=== PATIENT | male | born 1935 | race Caucasian/White ===

== ENCOUNTER 2018-12-16 14:10 | Outpatient (CLI) | payer MEDICARE ==
--- NOTE | 2018-12-16 16:21 | MRI ---
MRI ABDOMEN WITHOUT CONTRAST: 12/16/18 HISTORY: Renal cyst. FINDINGS: Exam is limited due to absence of IV contrast. The patient refused contrast. There is a 2.8 cm cystic mass in the right lobe of the liver which contains internal focal area of lo w T2 and intermediate to mildly high T1 signal. Possibility of this representing blood products canno t be excluded. Multiple gallstones are present. The spleen, pancreas, and adrenal glands appear normal. There are cysts in the left kidney. The largest measuring 1.7 cm. The tiny 5 mm cyst is seen in the r ight kidney. No free fluid or lymphadenopathy seen. There is no evidence of aneurysmal dilatation of the abdominal aorta. The bone marrow signal is normal. IMPRESSION: 1. Gallstones. 2. Complex cyst in the Liver. Possibility of hemorrhage cannot be excluded. A mural nodule caroline ot be excluded in the absence of IV contrast. 3. Renal cysts. 4. Recommend ultrasound of the abdomen. POS: OFF
== END 2018-12-16 14:11 | disposition home or self-care (01) ==
LOC: BICMRI 14:10
PROVIDERS: ATTEND Urology
DX: N28.1 Cyst of kidney, acquired (principal); K80.80 Other cholelithiasis without obstruction; K76.89 Other specified diseases of liver
CPT/HCPCS: 74181

== ENCOUNTER 2019-03-16 07:57 | Outpatient (CLI) | payer MEDICARE ==
[2019-03-16 12:04] LABS: Bacteria/HPF None Seen HPF (None Seen); Bilirubin Negative (Negative); Blood, Urine Negative (Negative); Clarity Clear (Clear); Glucose, Urine (Dipstick) Normal (Negative); Leukocyte Negative Leu/uL (Negative); Nitrite Negative (Negative); Protein, Urine (Dipstick) 200 mg/dL (Neg-Trace); RBC/HPF 0-3 HPF (0-3); Squamous Epithelial None Seen HPF (0-3); Urobilinogen Normal mg/dL (Less than 2); WBC/HPF 0-3 HPF (0-3)
[2019-03-16 12:11] LABS: Hemoglobin 13.7 g/dL (14.0-18.0); Mean Corpuscular HGB CONC 33.4 g/dL (32.0-36.0); Mean Platelet Volume 9.6 fL (7.4-10.4); Platelet Count 175 thou/uL (130-400); RBC Distribution Width 11.7 % (11.5-14.5); Red Blood Cell (RBC) Count 4.57 mill/uL (4.70-6.10); White Blood Cell (WBC) Count 7.8 thou/uL (4.8-10.8)
[2019-03-16 12:20] LABS: Prothrombin Time 12.8 SEC (12.0-14.7)
[2019-03-16 12:21] LABS: PTT 37.7 SEC (22.9-36.1)
[2019-03-16 19:47] LABS: Anion Gap 10 mmol/L (10-20); BUN (Urea Nitrogen) 33 mg/dL (8.4-25.7); Calc. Creatinine Clearance 0 mL/min (70-130); Calcium 9.4 mg/dL (7.8-10.44); Carbon Dioxide 25 mmol/L (23-31); Chloride 112 mmol/L (98-107); Estimated GFR-MDRD 29; Glucose 89 mg/dL (83-110); Potassium 4.4 mmol/L (3.5-5.1); Sodium 143 mmol/L (136-145)
--- NOTE | 2019-03-17 11:08 | EKG ---
Test Reason : Blood Pressure : / mmHG Vent. Rate : 051 BPM Atrial Rate : 051 BPM P-R Int : 194 ms QRS Dur : 096 ms QT Int : 430 ms P-R-T Axes : 029 017 -09 degrees QTc Int : 396 ms Sinus bradycardia Moderate voltage criteria for LVH, may be normal variant T wave abnormality, consider inferior ischemia Abnormal ECG No previous ECGs available Confirmed by DR. Debbie COTTER ([id number]) on 03/17/2019 11:07:38 AM Referred By: JAYDE Confirmed By:DR. Debbie COTTER
== END 2019-03-16 07:58 | disposition home or self-care (01) ==
LOC: LABBT 07:57
PROVIDERS: ATTEND Urology
DX: Z01.818 Encounter for other preprocedural examination (principal); N40.0 Benign prostatic hyperplasia without lower urinary tract symptoms; N28.1 Cyst of kidney, acquired; K76.89 Other specified diseases of liver
CPT/HCPCS: 80048; 81001; 85027; 85610; 85730; 87086; 93005; 93010

== ENCOUNTER 2019-03-17 08:59 | Outpatient (CLI) | payer MEDICARE ==
--- NOTE | 2019-03-17 09:55 | ULT ---
Right upper quadrant ultrasound: 03/17/2019 HISTORY: Hepatic mass lesion seen on recent abdominal MRI TECHNIQUE: Multiplanar grayscale sonographic imaging of the right upper quadrant obtained. FINDINGS: Imaged pancreas is grossly unremarkable, partially obscured by bowel gas. Portions of the l eft lobe of the liver obscured by bowel gas as well. Within the right lobe of the liver there is a 3.2 x 2.1 cm lesion corresponding to the abnormality se en on prior MRI. As on the previous MRI, this lesion is complex, consisting of a cystic component as well as an internal nodular component. Small shadowing stones are noted within the gallbladder lumen. No gallbladder wall thickening or erna cholecystic fluid. The right kidney measures approximately 10 cm in craniocaudal dimension and demonstrates no stone, hydronephrosis, or mass. IMPRESSION: Nonspecific complex cystic lesion within the right lobe of the liver. Perhaps this repres ents a complex cyst which contains hemorrhagic and/or proteinaceous debris. As the patient refused contrast media on prior MRI, follow-up recommendation would be a ultrasound in 6 months to document s tability. At the time of follow-up ultrasound, recommend imaging the liver lesion with the patient in the decubitus, prone, and supine positions to evaluate for potential mobility of the internal isoe choic component.
== END 2019-03-17 09:00 | disposition home or self-care (01) ==
LOC: BICULT 08:59
PROVIDERS: ATTEND Internal Medicine Gastroenterology
DX: R16.0 Hepatomegaly, not elsewhere classified (principal); K76.89 Other specified diseases of liver
CPT/HCPCS: 76705

== ENCOUNTER 2019-03-20 05:49 | Day surgery (SDC) | payer MEDICARE ==
[2019-03-16 10:24] VITALS: BMI 29.9
[2019-03-20] MEDS ORDERED: Levofloxacin 500 mg/D5W 100 ml Premix Bag ONE (07:10)
[2019-03-20] MEDS ORDERED: Midazolam HCl 2 mg/2 ml Vial ONE (07:33)
[2019-03-20] MEDS ORDERED: Fentanyl 100 MCG/2 ML VIAL ONE (07:33)
[2019-03-20] MEDS ORDERED: Ketamine 50 MG/ML (10ML VIAL) ONE ×2 (07:42→08:36)
[2019-03-20] MEDS ORDERED: B & O ONE (08:12)
[2019-03-20] MEDS ORDERED: Phenazopyridine HCl 97.5 MG TABLET ONE (08:43)
--- NOTE | 2019-03-20 09:40 | OP ---
DATE OF PROCEDURE: 03/20/2019 SERVICE: Urology. PREOPERATIVE DIAGNOSIS: Benign prostatic hypertrophy with urinary obstruction. POSTOPERATIVE DIAGNOSIS: Benign prostatic hypertrophy with urinary obstruction. PROCEDURE PERFORMED: UroLift procedure with 7 implants. INDICATIONS FOR PROCEDURE: Mr. Caro is an 83-year-old white male with BPH and urinary symptoms with obstructive symptoms predominating. He is currently on Flomax and wishes to undergo a minimally invasive treatment. We had discussed UroLift with all risks and benefits and he has agreed to proceed forward. DESCRIPTION OF PROCEDURE: After identification of armband and verification of consent, the patient was brought back to the operating room, where he underwent total intravenous anesthesia and was placed in dorsal lithotomy position and prepped and draped in the usual sterile fashion. After appropriate time-out, a lubricated 21-Moldovan rigid cystoscope was introduced per urethra into the bladder. There was a small bulbar urethra, which was navigated past with the cystoscope. The prostate was hypertrophic that previously had been reported on the office cystoscopy. The visual obturator was switched out for the UroLift implanting device, and the initial implant was placed at the patient's left bladder neck far enough away from the bladder neck to not be within the bladder. The UroLift device was positioned in the correct location and then 20 degrees of lateral compression as well as dropping the hand down to get an anterior lift was performed. Once in the correct location, the blue safety was released and the needle was deployed by squeezing the blue trigger. The tension was set with a perez trigger and deployment of the Nitinol prostatic capsular tab. The UroLift device was then advanced until the white line was in the keyhole and the urethral end piece deployed by releasing the trigger. This resulted in nice compression of the proximal aspect of the patient's left prostate. This was then repeated on the right side, and again two additional implants were placed on the left and right closer to the verumontanum. There was still a fairly significant bulge in the middle aspect of the prostate. Two additional implants were placed on the patient's left mid prostate with a moderate amount of bulge remaining. One additional implant was then placed in the right mid prostate with excellent compression of the lateral lobe on the patient's right. Upon completion, there was a fairly good anterior channel present. There was still a little bit of a bulge on the left, but it was not excessively significant. I did feel that this should allow for the patient to void adequately. The bleeding was noted to be mild to moderate. The bladder was left full and the cystoscope was then removed. An 18-Moldovan Monsalve catheter was placed into the patient's bladder with 10 mL of sterile water placed into the balloon. The patient had a B and O suppository placed, was then awakened, taken to Day Stay for recovery in stable condition. COMPLICATIONS: None. ESTIMATED BLOOD LOSS: Minimal. RETAINED TUBES AND DRAINS: 18-Moldovan Monsalve catheter. SPECIMENS: None. IMPLANTS USED: 7. DISPOSITION: The patient will be discharged home after an adequate void trial. I will then see him in the office for followup. Job ID: [id number]
[2019-03-20] MEDS ORDERED: PROPOFOL 200 MG/20 ML VIAL ONE (13:53)
== END 2019-03-20 11:20 | disposition home or self-care (01) ==
LOC: SDC 05:49
PROVIDERS: ATTEND Urology
PROC: 0T7D8DZ Dilation of Urethra with Intraluminal Device, Via Natural or Artificial Opening Endoscopic (ICD-10-PCS; principal; 2019-03-20)
DX: N40.1 Benign prostatic hyperplasia with lower urinary tract symptoms (principal); N13.8 Other obstructive and reflux uropathy; I10 Essential (primary) hypertension; E78.5 Hyperlipidemia, unspecified; M19.90 Unspecified osteoarthritis, unspecified site; Z87.891 Personal history of nicotine dependence; Z79.82 Long term (current) use of aspirin; Z79.899 Other long term (current) drug therapy
CPT/HCPCS: C1889; C9740; J1956; J2250; J2704; J3010

== ENCOUNTER 2019-10-01 09:17 | Outpatient (CLI) | payer MEDICARE ==
--- NOTE | 2019-10-01 10:36 | MRI ---
EXAM: MRI of the brain without contrast HISTORY: Senile degeneration of the brain COMPARISON: None TECHNIQUE: Multiplanar multisequence MR images were obtained of the brain without IV contrast. FINDINGS: Scattered foci of high T2/FLAIR signal in the subcortical and periventricular white matter are likely secondary to small vessel ischemic disease. No restricted diffusion. No hydronephrosis. No extra-axial fluid collection or intracranial hemorrhage. The expected flow voids are present. Corpus callosum, pituitary, and craniocervical junction are within normal limits. The calvarium and overlying soft tissues are unremarkable. The paranasal sinuses and mastoid air cells are well aerated. IMPRESSION: Small vessel ischemic disease without evidence of acute intracranial abnormality.
== END 2019-10-01 09:18 | disposition home or self-care (01) ==
LOC: BICMRI 09:17
PROVIDERS: ATTEND Psychiatry & Neurology Neurology
DX: G31.1 Senile degeneration of brain, not elsewhere classified (principal); I67.82 Cerebral ischemia
CPT/HCPCS: 70551

== ENCOUNTER 2021-11-08 11:45 | Outpatient (CLI) | payer MEDICARE, OTHER | END 2021-11-08 11:46 | disposition home or self-care (01) | LOC: BICRAD 11:45 | PROVIDERS: ATTEND Internal Medicine Nephrology | DX: N18.5 Chronic kidney disease, stage 5 (principal) | CPT/HCPCS: 36415; 71045; 80048; 85025; 86704; 86706; 86803; 87340 ==

== ENCOUNTER 2021-11-24 15:21 | Outpatient (CLI) | payer OTHER ==
[2021-11-24 17:11] LABS: #Basophils 0.1 10x3/uL (0.0-0.2); #Eosinphils 0.3 10x3/uL (0.0-0.5); #Monocytes 0.9 10x3/uL (0.0-1.1); #Neutrophils 4.4 10x3/uL (1.5-8.4); %Basophils 0.7 % (0.0-2.0); %Eosinophils 4.4 % (0.0-6.0); %Lymphocytes 23.4 % (18.0-47.0); %Monocytes 11.8 % (0.0-10.0); %Neutrophils 59.4 % (40.0-75.0); Hemoglobin 9.7 g/dL (13.5-17.5); Mean Corpuscular HGB CONC 31.7 g/dL (32.0-36.0); Mean Corpuscular Hemoglobin 29.7 pg (27.0-33.0); Mean Corpuscular Volume 93.6 fl (81.2-95.1); Mean Platelet Volume 12.2 fl (7.4-10.4); Platelet Count 195 10x3/uL (150-450); RBC Distribution Width 13.1 % (11.5-14.5); Red Blood Cell (RBC) Count 3.27 10x6/uL (4.32-5.72); White Blood Cell (WBC) Count 7.4 10x3/uL (3.5-10.5)
[2021-11-24 17:40] LABS: Anion Gap 15 mmol/L (10-20); BUN (Urea Nitrogen) 64 mg/dL (8.4-25.7); Calc. Creatinine Clearance 0 mL/min (70-130); Calcium 9.2 mg/dL (7.8-10.44); Carbon Dioxide 16 mmol/L (23-31); Chloride 116 mmol/L (98-107); Estimated GFR 12; Glucose 112 mg/dL (83-110); Potassium 4.8 mmol/L (3.5-5.1); Sodium 142 mmol/L (136-145)
== END 2021-11-24 15:22 | disposition home or self-care (01) ==
LOC: LABBT 15:21
PROVIDERS: ATTEND Specialist
DX: Z01.818 Encounter for other preprocedural examination (principal); N18.4 Chronic kidney disease, stage 4 (severe); Z20.822 Contact with and (suspected) exposure to COVID-19
CPT/HCPCS: 80048; 85025; 87811; 93005; 93010

== ENCOUNTER 2021-11-29 09:30 | Day surgery (SDC) | payer OTHER ==
[2021-11-28 09:14] VITALS: BMI 27.5
[2021-11-29 12:04] LABS: #Eosinphils 0.3 thou/uL (0.0-0.7); #Lymphocytes 1.5 thou/uL (1.20-3.40); #Monocytes 0.8 thou/uL (0.11-0.59); %Basophils 0.2 % (0.0-1.0); %Eosinophils 4.1 % (0.0-10.0); %Lymphocytes 20.1 % (21.0-51.0); %Monocytes 9.9 % (0.0-10.0); %Neutrophils 65.7 % (42.0-75.0); Mean Corpuscular HGB CONC 32.8 g/dL (32.0-36.0); Mean Corpuscular Hemoglobin 31.4 pg (27.0-31.0); Mean Corpuscular Volume 95.7 fL (78.0-98.0); Mean Platelet Volume 9.4 fL (7.4-10.4); Platelet Count 168 thou/uL (130-400); RBC Distribution Width 13.7 % (11.5-14.5); Red Blood Cell (RBC) Count 3.51 mill/uL (4.70-6.10); White Blood Cell (WBC) Count 7.6 thou/uL (4.8-10.8)
[2021-11-29 12:33] LABS: Anion Gap 14 mmol/L (10-20); BUN (Urea Nitrogen) 71 mg/dL (8.4-25.7); Calc. Creatinine Clearance 14 mL/min (70-130); Calcium 9.1 mg/dL (7.8-10.44); Carbon Dioxide 14 mmol/L (23-31); Estimated GFR 12; Glucose 95 mg/dL (83-110); Potassium 5.3 mmol/L (3.5-5.1); Sodium 139 mmol/L (136-145)
[2021-11-29] MEDS ORDERED: Acetaminophen 500 MG TAB ONE (12:44)
[2021-11-29 12:47] LABS: HBSAB Concentration Less than 8.00 mIU/mL; HBSAg Index 0.32 S/CO (0-0.99); Hep B Core Total Ab Non-Reactive (NonReactive); Hep B Core Total Index 0.08 S/CO (0-0.79); Hep B Surf AB Non-Reactive (NonReactive); Hep B Surf Ag Non-Reactive S/CO (NonReactive); Hep C IgG Ab Non-Reactive (NonReactive)
[2021-11-29 13:02] LABS: Chloride 116 mmol/L (98-107)
[2021-11-29] MEDS ORDERED: SUGAMMADEX SODIUM 200 MG/2 ML VIAL ONE (13:20)
[2021-11-29] MEDS ORDERED: fentaNYL Citrate/PF 100 MCG/2 ML SYRINGE ONE (13:20)
[2021-11-29] MEDS ORDERED: Bupivacaine HCl 0.5%/Epinephrine 1:200,000/PF 30 ml Vial ONE (13:27)
[2021-11-29] MEDS ORDERED: Heparin 5,000 UNITS/ML VIAL ONE (13:27)
[2021-11-29] MEDS ORDERED: Protamine Sulfate 50 MG/5 ML VIAL ONE (13:27)
[2021-11-29] MEDS ORDERED: Heparin 10,000 UNITS/ 10 ML VIAL ONE (13:27)
[2021-11-29] MEDS ORDERED: Lidocaine 2% PF 5 ML VIAL ONE (13:33)
[2021-11-29] MEDS ORDERED: Sodium Chloride 0.9% 100 ML ONE (13:40)
[2021-11-29] MEDS ORDERED: CEFAZOLIN 2 GM VIAL ONE (13:40)
[2021-11-29] MEDS ORDERED: Glycopyrrolate 0.2 MG/ML 5 ML SYRINGE ONE (13:55)
[2021-11-29] MEDS ORDERED: Lidocaine 1% MPF 2 ML VIAL ONE (13:55)
[2021-11-29] MEDS ORDERED: PROPOFOL 200 MG/20 ML VIAL ONE (13:55)
[2021-11-29] MEDS ORDERED: Rocuronium Bromide 10 MG/ML (10ML VIAL) ONE (13:55)
== END 2021-11-29 17:15 | disposition home or self-care (01) ==
LOC: SDC 09:30
PROVIDERS: ATTEND Specialist
PROC: 0WHG43Z Insertion of Infusion Device into Peritoneal Cavity, Percutaneous Endoscopic Approach (ICD-10-PCS; principal; 2021-11-29)
PROC: 0DQU4ZZ Repair Omentum, Percutaneous Endoscopic Approach (ICD-10-PCS; 2021-11-29)
PROC: 031C0ZF Bypass Left Radial Artery to Lower Arm Vein, Open Approach (ICD-10-PCS; 2021-11-29)
DX: I12.0 Hypertensive chronic kidney disease with stage 5 chronic kidney disease or end stage renal disease (principal); N18.6 End stage renal disease; I70.1 Atherosclerosis of renal artery; N40.0 Benign prostatic hyperplasia without lower urinary tract symptoms; K21.9 Gastro-esophageal reflux disease without esophagitis; E78.5 Hyperlipidemia, unspecified; I25.10 Atherosclerotic heart disease of native coronary artery without angina pectoris; Z87.891 Personal history of nicotine dependence; Z88.8 Allergy status to other drugs, medicaments and biological substances; Z79.82 Long term (current) use of aspirin; Z79.899 Other long term (current) drug therapy; Z95.820 Peripheral vascular angioplasty status with implants and grafts
CPT/HCPCS: 36415; 80048; 85025; 86704; 86706; 86803; 87340; 93970; C1776; J0690; J1644; J2001; J2704; J2720; J3490

== ENCOUNTER 2022-01-11 10:21 | Outpatient (CLI) | payer OTHER | END 2022-01-11 10:22 | disposition home or self-care (01) | LOC: MRI 10:21 | PROVIDERS: ATTEND Registered Nurse | DX: G31.1 Senile degeneration of brain, not elsewhere classified (principal) | CPT/HCPCS: 70551 ==

== ENCOUNTER 2022-03-20 10:24 | Inpatient (IN) | payer MEDICARE, OTHER ==
[2022-03-20 11:08] LABS: #Eosinphils 0.1 thou/uL (0.0-0.7); #Lymphocytes 1.5 thou/uL (1.20-3.40); #Monocytes 1.1 thou/uL (0.11-0.59); #Neutrophils 8.8 thou/uL (1.40-6.50); %Eosinophils 1.1 % (0.0-10.0); %Lymphocytes 12.6 % (21.0-51.0); %Monocytes 9.9 % (0.0-10.0); %Neutrophils 76.4 % (42.0-75.0); Hemoglobin 11.7 g/dL (14.0-18.0); Mean Corpuscular HGB CONC 32.3 g/dL (32.0-36.0); Mean Corpuscular Volume 89.7 fl (78.0-98.0); Mean Platelet Volume 8.7 fL (7.4-10.4); Platelet Count 373 10x3/uL (130-400); Red Blood Cell (RBC) Count 4.05 mill/uL (4.70-6.10); White Blood Cell (WBC) Count 11.5 10x3/uL (4.8-10.8)
[2022-03-20 11:33] LABS: ALT (SGPT) 55 U/L (8-55); AST (SGOT) 31 U/L (5-34); Albumin 2.7 g/dL (3.4-4.8); Alkaline Phosphatase 250 U/L (40-110); Anion Gap 24 mmol/L (10-20); Bilirubin, Total 0.7 mg/dL (0.2-1.2); Calc. Creatinine Clearance 0 mL/min (70-130); Calcium 9.7 mg/dL (7.8-10.44); Carbon Dioxide 23 mmol/L (23-31); Chloride 96 mmol/L (98-107); Estimated GFR 4; Globulin 4.4 g/dL (2.4-3.5); Glucose 129 mg/dL (83-110); Potassium 3.6 mmol/L (3.5-5.1); Protein, Total 7.1 g/dL (5.8-8.1); Sodium 139 mmol/L (136-145)
[2022-03-20 11:44] LABS: BUN (Urea Nitrogen) 133 mg/dL (8.4-25.7)
[2022-03-20 14:11] LABS: CKMB 1.9 ng/mL (0-6.6)
[2022-03-20 14:40] LABS: Actual Bicarbonate (HCO3v) 22 mEq/L (22-28); Base Excess -2.4 mEq/L (-2.0 to +3.0); Calcium, Ionized (venous) 1.07 mmol/L (1.16-1.32); Chloride (VBG) 97 mmol/L (98-106); Hemoglobin (Hb) 11.1 g/dL (12.6-17.4); Potassium (VBG) 3.51 mmol/L (3.70-5.30); Sodium 134.7 mmol/L (133-146)
[2022-03-20] MEDS ORDERED: Ondansetron PF 4 MG/2 ML Vial IVP PRN (15:32)
[2022-03-20] MEDS ORDERED: Ondansetron ODT 4 MG TAB PO PRN (15:32)
[2022-03-20] MEDS ORDERED: Albumin 25% 25 GM/100 ML BOT IVPB SCH (17:45)
[2022-03-20 18:51] LABS: HBSAg Index 0.29 S/CO (0-0.99); Hep B Core Total Ab Non-Reactive (NonReactive); Hep B Core Total Index 0.14 S/CO (0-0.79); Hep B Surf Ag Non-Reactive S/CO (NonReactive); Hep C IgG Ab Non-Reactive (NonReactive); Hep C Index 0.13 S/CO (0-0.79)
[2022-03-20 20:20] LABS: HBSAB Concentration 9.99 mIU/mL; Hep B Surf AB Indeterminate (NonReactive)
[2022-03-20 20:37] VITALS: BMI 24.6
[2022-03-20] MEDS: Megestrol Acetate 40 MG TAB PO SCH (21:09)
[2022-03-20] MEDS: Donepezil HCl 5 MG TAB PO SCH (21:10)
[2022-03-20] MEDS: Acetaminophen 500 MG TAB PO PRN (21:11)
[2022-03-20] MEDS: Famotidine 20 MG TAB PO SCH (21:11)
[2022-03-21 05:01] LABS: #Eosinphils 0.2 thou/uL (0.0-0.7); #Lymphocytes 1.5 thou/uL (1.20-3.40); #Monocytes 1.3 thou/uL (0.11-0.59); #Neutrophils 6.6 thou/uL (1.40-6.50); %Basophils 0.5 % (0.0-1.0); %Lymphocytes 15.2 % (21.0-51.0); %Monocytes 13.9 % (0.0-10.0); %Neutrophils 68.3 % (42.0-75.0); Hemoglobin 9.7 g/dL (14.0-18.0); Mean Corpuscular HGB CONC 32.3 g/dL (32.0-36.0); Mean Corpuscular Hemoglobin 29.4 pg (27.0-31.0); Mean Corpuscular Volume 90.9 fl (78.0-98.0); Mean Platelet Volume 8.7 fL (7.4-10.4); Platelet Count 304 10x3/uL (130-400); RBC Distribution Width 13.9 % (11.5-14.5); White Blood Cell (WBC) Count 9.6 10x3/uL (4.8-10.8)
[2022-03-21 05:24] LABS: ALT (SGPT) 39 U/L (8-55); AST (SGOT) 24 U/L (5-34); Albumin 2.8 g/dL (3.4-4.8); Alkaline Phosphatase 186 U/L (40-110); Anion Gap 19 mmol/L (10-20); BUN (Urea Nitrogen) 94 mg/dL (8.4-25.7); Bilirubin, Total 0.8 mg/dL (0.2-1.2); Calc. Creatinine Clearance 6 mL/min (70-130); Calcium 8.7 mg/dL (7.8-10.44); Carbon Dioxide 23 mmol/L (23-31); Chloride 99 mmol/L (98-107); Estimated GFR 5; Globulin 3.3 g/dL (2.4-3.5); Glucose 87 mg/dL (83-110); Potassium 3.2 mmol/L (3.5-5.1); Protein, Total 6.1 g/dL (5.8-8.1); Sodium 138 mmol/L (136-145)
[2022-03-21] MEDS ORDERED: Epoetin (ESRD) 10,000 UNITS/ML VIAL SC SCH (10:00)
[2022-03-21] MEDS: Fluticasone Propionate Nasal Spray 16 gm Bottle NASAL SCH (11:10)
[2022-03-21] MEDS: Calcitriol 0.25 MCG CAP PO SCH (11:17)
[2022-03-21] MEDS: Megestrol Acetate 40 MG TAB PO SCH ×2 (11:17→16:15)
[2022-03-21] MEDS: Tamsulosin HCl 0.4 MG CAP PO SCH (11:17)
[2022-03-21] MEDS: Acetaminophen 500 MG TAB PO PRN ×2 (13:40→20:42)
[2022-03-21] MEDS ORDERED: Nitroglycerin 0.4 MG TAB (25 Tab Bottle) SL PRN (16:45)
[2022-03-21] MEDS: Ipratropium Bromide 0.06% Nasal Inhaler 15ml EA NARE SCH (18:01)
[2022-03-21] MEDS: Sevelamer Carbonate 800 MG TAB PO SCH (18:01)
[2022-03-21] MEDS: Famotidine 20 MG TAB PO SCH (20:42)
[2022-03-21] MEDS: Atorvastatin Calcium 40 MG TAB PO SCH (20:42)
[2022-03-21] MEDS: Donepezil HCl 5 MG TAB PO SCH (20:42)
[2022-03-22 04:56] LABS: #Eosinphils 0.1 thou/uL (0.0-0.7); #Lymphocytes 1.8 thou/uL (1.20-3.40); #Monocytes 1.1 thou/uL (0.11-0.59); #Neutrophils 6.5 thou/uL (1.40-6.50); %Basophils 0.2 % (0.0-1.0); %Eosinophils 1.3 % (0.0-10.0); %Lymphocytes 18.6 % (21.0-51.0); %Monocytes 11.8 % (0.0-10.0); Hemoglobin 9.7 g/dL (14.0-18.0); Mean Corpuscular HGB CONC 33.1 g/dL (32.0-36.0); Mean Corpuscular Hemoglobin 29.5 pg (27.0-31.0); Mean Corpuscular Volume 89.1 fl (78.0-98.0); Mean Platelet Volume 8.7 fL (7.4-10.4); Platelet Count 301 10x3/uL (130-400); RBC Distribution Width 13.7 % (11.5-14.5); White Blood Cell (WBC) Count 9.6 10x3/uL (4.8-10.8)
[2022-03-22 05:15] LABS: Anion Gap 19 mmol/L (10-20); BUN (Urea Nitrogen) 96 mg/dL (8.4-25.7); Calc. Creatinine Clearance 5 mL/min (70-130); Calcium 9.1 mg/dL (7.8-10.44); Carbon Dioxide 25 mmol/L (23-31); Chloride 96 mmol/L (98-107); Estimated GFR 4; Glucose 104 mg/dL (83-110); Sodium 137 mmol/L (136-145)
[2022-03-22] MEDS: Sevelamer Carbonate 800 MG TAB PO SCH ×3 (07:51→16:02)
[2022-03-22] MEDS ORDERED: Potassium Chloride 20 MEQ TAB PO SCH (08:30)
[2022-03-22] MEDS: Ferrous Sulfate 325 MG TAB PO SCH (09:55)
[2022-03-22] MEDS: Aspirin 81 mg Enteric Coated Tablet PO SCH (09:55)
[2022-03-22] MEDS: Tamsulosin HCl 0.4 MG CAP PO SCH ×2 (09:55→09:59)
[2022-03-22] MEDS: Megestrol Acetate 40 MG TAB PO SCH ×2 (09:55→16:02)
[2022-03-22] MEDS: Amlodipine 5 MG TAB PO SCH (09:55)
[2022-03-22] MEDS: Calcitriol 0.25 MCG CAP PO SCH (09:56)
[2022-03-22] MEDS: Fluticasone Propionate Nasal Spray 16 gm Bottle NASAL SCH (09:56)
[2022-03-22] MEDS: Ascorbic Acid 500 mg Chewable Tablet PO SCH (09:56)
[2022-03-22] MEDS: Ipratropium Bromide 0.06% Nasal Inhaler 15ml EA NARE SCH (16:01)
[2022-03-22] MEDS ORDERED: traZODone HCl 50 MG TAB PO SCH (21:00)
[2022-03-22] MEDS: Donepezil HCl 5 MG TAB PO SCH (21:50)
[2022-03-22] MEDS: Atorvastatin Calcium 40 MG TAB PO SCH (21:50)
[2022-03-23 04:10] LABS: #Basophils 0.1 thou/uL (0.0-0.2); #Eosinphils 0.2 thou/uL (0.0-0.7); #Lymphocytes 1.5 thou/uL (1.20-3.40); #Monocytes 1.3 thou/uL (0.11-0.59); #Neutrophils 8.8 thou/uL (1.40-6.50); %Basophils 0.6 % (0.0-1.0); %Eosinophils 1.9 % (0.0-10.0); %Lymphocytes 12.7 % (21.0-51.0); %Neutrophils 73.8 % (42.0-75.0); Hemoglobin 10.3 g/dL (14.0-18.0); Mean Corpuscular HGB CONC 32.7 g/dL (32.0-36.0); Mean Corpuscular Hemoglobin 29.2 pg (27.0-31.0); Mean Corpuscular Volume 89.4 fl (78.0-98.0); Mean Platelet Volume 8.8 fL (7.4-10.4); Platelet Count 305 10x3/uL (130-400); RBC Distribution Width 13.9 % (11.5-14.5); Red Blood Cell (RBC) Count 3.53 mill/uL (4.70-6.10); White Blood Cell (WBC) Count 11.9 10x3/uL (4.8-10.8)
[2022-03-23 04:44] LABS: Anion Gap 20 mmol/L (10-20); BUN (Urea Nitrogen) 98 mg/dL (8.4-25.7); Calc. Creatinine Clearance 5 mL/min (70-130); Calcium 9.3 mg/dL (7.8-10.44); Carbon Dioxide 22 mmol/L (23-31); Chloride 98 mmol/L (98-107); Estimated GFR 4; Glucose 135 mg/dL (83-110); Potassium 3.1 mmol/L (3.5-5.1); Sodium 137 mmol/L (136-145)
[2022-03-23] MEDS: Megestrol Acetate 40 MG TAB PO SCH (09:01)
[2022-03-23] MEDS: Sevelamer Carbonate 800 MG TAB PO SCH ×2 (09:01→13:15)
[2022-03-23] MEDS: Calcitriol 0.25 MCG CAP PO SCH (09:01)
[2022-03-23] MEDS: Ferrous Sulfate 325 MG TAB PO SCH (09:01)
[2022-03-23] MEDS: Amlodipine 5 MG TAB PO SCH ×2 (09:01→10:25)
[2022-03-23] MEDS: Aspirin 81 mg Enteric Coated Tablet PO SCH (09:01)
[2022-03-23] MEDS: Tamsulosin HCl 0.4 MG CAP PO SCH ×2 (09:02→09:07)
[2022-03-23] MEDS: Ascorbic Acid 500 mg Chewable Tablet PO SCH (09:02)
[2022-03-23] MEDS: Fluticasone Propionate Nasal Spray 16 gm Bottle NASAL SCH (09:02)
[2022-03-23] MEDS: Ipratropium Bromide 0.06% Nasal Inhaler 15ml EA NARE SCH (09:03)
[2022-03-23] MEDS ORDERED: Famotidine 20 MG TAB PO SCH (09:30)
[2022-03-23] MEDS ORDERED: Potassium Chloride 20 MEQ TAB PO SCH (11:00)
[2022-03-23 13:26] VITALS: BP 110/60; TEMP 97.4
[2022-03-23] MEDS ORDERED: traZODone HCl 50 MG TAB PO SCH (21:00)
== END 2022-03-23 13:28 | disposition home health service (06) | DRG 682 ==
LOC: ERS 10:24 → 2NO 14:20 → ERHOLD 14:37 → 2NO 19:44
PROVIDERS: ADMIT Internal Medicine; ATTEND Internal Medicine
PROC: 3E1M39Z Irrigation of Peritoneal Cavity using Dialysate, Percutaneous Approach (ICD-10-PCS; principal; 2022-03-22)
DX: I12.0 Hypertensive chronic kidney disease with stage 5 chronic kidney disease or end stage renal disease (principal); G92.8 Other toxic encephalopathy; N18.6 End stage renal disease; F05 Delirium due to known physiological condition; E44.1 Mild protein-calorie malnutrition; Z20.822 Contact with and (suspected) exposure to COVID-19; D63.1 Anemia in chronic kidney disease; F03.90 Unspecified dementia, unspecified severity, without behavioral disturbance, psychotic disturbance, mood disturbance, and anxiety; E78.5 Hyperlipidemia, unspecified; J30.2 Other seasonal allergic rhinitis; R62.7 Adult failure to thrive; Z99.2 Dependence on renal dialysis; Z68.25 Body mass index [BMI] 25.0-25.9, adult; Z88.8 Allergy status to other drugs, medicaments and biological substances; Z87.891 Personal history of nicotine dependence; Z79.899 Other long term (current) drug therapy; Z95.5 Presence of coronary angioplasty implant and graft; Z95.828 Presence of other vascular implants and grafts; Z98.890 Other specified postprocedural states; Z98.49 Cataract extraction status, unspecified eye; Z82.49 Family history of ischemic heart disease and other diseases of the circulatory system
CPT/HCPCS: 36415; 70450; 80048; 80053; 82553; 82805; 84484; 85025; 86704; 87040; 93005; Q4081; S0179; U0003; U0005

== ENCOUNTER 2022-03-25 10:37 | Inpatient (IN) | payer MEDICARE ==
[2022-03-25 11:35] LABS: Hemoglobin 10.5 g/dL (14.0-18.0); Mean Corpuscular HGB CONC 33.2 g/dL (32.0-36.0); Mean Corpuscular Hemoglobin 30.2 pg (27.0-31.0); Mean Corpuscular Volume 90.8 fl (78.0-98.0); Mean Platelet Volume 8.6 fL (7.4-10.4); Platelet Count 291 10x3/uL (130-400); RBC Distribution Width 14.3 % (11.5-14.5); Red Blood Cell (RBC) Count 3.49 mill/uL (4.70-6.10); White Blood Cell (WBC) Count 20.5 10x3/uL (4.8-10.8)
[2022-03-25 11:48] LABS: ALT (SGPT) 34 U/L (8-55); AST (SGOT) 29 U/L (5-34); Albumin 2.6 g/dL (3.4-4.8); Alkaline Phosphatase 166 U/L (40-110); Anion Gap 23 mmol/L (10-20); BUN (Urea Nitrogen) 95 mg/dL (8.4-25.7); Bilirubin, Total 0.7 mg/dL (0.2-1.2); Calc. Creatinine Clearance 0 mL/min (70-130); Calcium 9.5 mg/dL (7.8-10.44); Carbon Dioxide 18 mmol/L (23-31); Chloride 100 mmol/L (98-107); Estimated GFR 4; Globulin 3.9 g/dL (2.4-3.5); Glucose 135 mg/dL (83-110); Potassium 4.2 mmol/L (3.5-5.1); Protein, Total 6.5 g/dL (5.8-8.1); Sodium 137 mmol/L (136-145)
[2022-03-25 11:56] LABS: Lymphocytes 8 % (21-51); MDiff Complete? YES; Monocytes 5 % (0-10); Neutrophil 87 % (42-75); Platelet Morphology Comment Appears Adequate; RBC Morphology Normal
[2022-03-25 12:03] LABS: CKMB 1.4 ng/mL (0-6.6)
[2022-03-25] MEDS ORDERED: Acetaminophen 325 MG TAB PO PRN (13:02)
[2022-03-25] MEDS ORDERED: Ondansetron PF 4 MG/2 ML Vial IVP PRN (13:02)
[2022-03-25 13:21] LABS: Bacteria/HPF 2+ HPF (None Seen); Bilirubin Negative (Negative); Blood, Urine Negative (Negative); Clarity Turbid (Clear); Glucose, Urine (Dipstick) Normal (Negative); Ketone, Urine Negative (Negative); Leukocyte 75 Leu/uL (Negative); Nitrite Negative (Negative); Protein, Urine (Dipstick) 100 mg/dL (Neg-Trace); RBC/HPF 0-3 HPF (0-3); Specific Gravity, Urine 1.017 (1.002-1.036); Squamous Epithelial None Seen HPF (0-3); Urobilinogen Normal mg/dL (Less than 2); pH, Urine 5.5 (5.0-9.0)
[2022-03-25] MEDS ORDERED: Heparin 10,000 UNITS/ 10 ML VIAL ONE (13:57)
[2022-03-25] MEDS ORDERED: Piperacillin/Tazobactam 3.375 GM in Sodium Chloride 0.9% 100 ML IVPB SCH ×2 (14:15→18:00)
[2022-03-25] MEDS ORDERED: Piperacillin/Tazobactam 3.375 GM VIAL ONE ×2 (16:34→20:21)
[2022-03-25] MEDS: Megestrol Acetate 40 MG TAB PO SCH (16:47)
[2022-03-25] MEDS: Sevelamer Carbonate 800 MG TAB PO SCH (16:48)
[2022-03-25 17:50] LABS: RBC Count-Automated (BF) 0 /cu.mm; WBC/Nucleated-Auto (BF) 777 /cu.mm
[2022-03-25 17:59] LABS: BF Color Yellow; Body Fluid Source Peritoneal Fluid; Clarity Hazy (Clear); Tube # EDTA
[2022-03-25 18:03] LABS: BF Segmented Neutrophils 52 %; Cell Count Non Hematic 42 %; Lymphocytes 6 %
[2022-03-25] MEDS: Piperacillin/Tazobactam 3.375 GM in Sodium Chloride 0.9% 100 ML IVPB SCH (20:25)
[2022-03-25] MEDS: Atorvastatin Calcium 40 MG TAB PO SCH (20:30)
[2022-03-25] MEDS ORDERED: traZODone HCl 50 MG TAB ONE (20:31)
[2022-03-25] MEDS: Donepezil HCl 5 MG TAB PO SCH (20:43)
[2022-03-25] MEDS: traZODone HCl 50 MG TAB PO SCH (20:43)
[2022-03-26 05:18] LABS: #Eosinphils 0.2 thou/uL (0.0-0.7); #Lymphocytes 1.4 thou/uL (1.20-3.40); #Monocytes 1.5 thou/uL (0.11-0.59); #Neutrophils 10.1 thou/uL (1.40-6.50); %Basophils 0.1 % (0.0-1.0); %Eosinophils 1.5 % (0.0-10.0); %Lymphocytes 10.3 % (21.0-51.0); %Monocytes 11.5 % (0.0-10.0); %Neutrophils 76.7 % (42.0-75.0); Hemoglobin 8.6 g/dL (14.0-18.0); Mean Corpuscular HGB CONC 33.2 g/dL (32.0-36.0); Mean Corpuscular Hemoglobin 29.7 pg (27.0-31.0); Mean Corpuscular Volume 89.5 fl (78.0-98.0); Mean Platelet Volume 8.6 fL (7.4-10.4); Platelet Count 275 10x3/uL (130-400); RBC Distribution Width 14.5 % (11.5-14.5); White Blood Cell (WBC) Count 13.1 10x3/uL (4.8-10.8)
[2022-03-26 05:33] LABS: Anion Gap 16 mmol/L (10-20); BUN (Urea Nitrogen) 89 mg/dL (8.4-25.7); Calc. Creatinine Clearance 5 mL/min (70-130); Calcium 8.8 mg/dL (7.8-10.44); Carbon Dioxide 24 mmol/L (23-31); Chloride 99 mmol/L (98-107); Estimated GFR 4; Glucose 102 mg/dL (83-110); Potassium 3.3 mmol/L (3.5-5.1); Sodium 136 mmol/L (136-145)
[2022-03-26] MEDS ORDERED: Aspirin Chewable 81 MG TAB ONE (08:22)
[2022-03-26] MEDS ORDERED: Potassium Chloride 20 MEQ TAB ONE (08:22)
[2022-03-26] MEDS ORDERED: Piperacillin/Tazobactam 3.375 GM VIAL ONE (08:23)
[2022-03-26] MEDS: Piperacillin/Tazobactam 3.375 GM in Sodium Chloride 0.9% 100 ML IVPB SCH ×2 (08:31→18:21)
[2022-03-26] MEDS: Sevelamer Carbonate 800 MG TAB PO SCH ×3 (08:31→17:05)
[2022-03-26] MEDS: Megestrol Acetate 40 MG TAB PO SCH ×2 (08:31→17:07)
[2022-03-26] MEDS: Potassium Chloride 20 MEQ TAB PO SCH (08:31)
[2022-03-26] MEDS: Tamsulosin HCl 0.4 MG CAP PO SCH (08:31)
[2022-03-26] MEDS: Aspirin 81 mg Enteric Coated Tablet PO SCH (08:31)
[2022-03-26] MEDS ORDERED: Epoetin (ESRD) 20,000 UNITS/ML SC SCH (09:45)
[2022-03-26] MEDS: Ferrous Sulfate 325 MG TAB PO SCH (10:19)
[2022-03-26] MEDS ORDERED: EPOETIN ALFA-EPBX (ESRD) 10,000 UNIT/ML VIAL SC SCH (12:00)
[2022-03-26] MEDS: Atorvastatin Calcium 40 MG TAB PO SCH (21:11)
[2022-03-26] MEDS: Heparin 5,000 UNITS/ML VIAL SC SCH (21:12)
[2022-03-26] MEDS: traZODone HCl 50 MG TAB PO SCH (21:12)
[2022-03-26] MEDS: Donepezil HCl 5 MG TAB PO SCH (21:12)
[2022-03-27] MEDS: Piperacillin/Tazobactam 3.375 GM in Sodium Chloride 0.9% 100 ML IVPB SCH ×2 (05:22→17:56)
[2022-03-27 08:01] LABS: #Eosinphils 0.1 thou/uL (0.0-0.7); #Lymphocytes 1.8 thou/uL (1.20-3.40); #Monocytes 0.7 thou/uL (0.11-0.59); #Neutrophils 6.8 thou/uL (1.40-6.50); %Basophils 0.2 % (0.0-1.0); %Eosinophils 0.8 % (0.0-10.0); %Lymphocytes 19.2 % (21.0-51.0); %Monocytes 7.2 % (0.0-10.0); %Neutrophils 72.6 % (42.0-75.0); Hemoglobin 10.9 g/dL (14.0-18.0); Mean Corpuscular HGB CONC 31.5 g/dL (32.0-36.0); Mean Platelet Volume 8.6 fL (7.4-10.4); Platelet Count 303 10x3/uL (130-400); RBC Distribution Width 15.1 % (11.5-14.5); Red Blood Cell (RBC) Count 3.77 mill/uL (4.70-6.10); White Blood Cell (WBC) Count 9.3 10x3/uL (4.8-10.8)
[2022-03-27 08:20] LABS: Anion Gap 24 mmol/L (10-20); BUN (Urea Nitrogen) 84 mg/dL (8.4-25.7); Calc. Creatinine Clearance 6 mL/min (70-130); Calcium 9.7 mg/dL (7.8-10.44); Carbon Dioxide 17 mmol/L (23-31); Chloride 99 mmol/L (98-107); Estimated GFR 4; Glucose 136 mg/dL (83-110); Potassium 3.6 mmol/L (3.5-5.1); Sodium 136 mmol/L (136-145)
[2022-03-27] MEDS: Aspirin 81 mg Enteric Coated Tablet PO SCH (09:37)
[2022-03-27] MEDS: Sevelamer Carbonate 800 MG TAB PO SCH ×3 (09:38→17:55)
[2022-03-27] MEDS: Potassium Chloride 20 MEQ TAB PO SCH (09:38)
[2022-03-27] MEDS: Megestrol Acetate 40 MG TAB PO SCH ×2 (09:39→17:57)
[2022-03-27] MEDS: Heparin 5,000 UNITS/ML VIAL SC SCH ×3 (09:44→21:55)
[2022-03-27] MEDS: Tamsulosin HCl 0.4 MG CAP PO SCH (11:33)
[2022-03-27] MEDS ORDERED: Morphine 2 MG/ML VIAL SLOW IVP PRN (12:27)
[2022-03-27 18:01] LABS: INR-International Normal Ratio 1.3; Prothrombin Time 16.3 sec (12.0-14.7)
[2022-03-27 18:02] LABS: PTT 56.6 sec (22.9-36.1)
[2022-03-27] MEDS: Donepezil HCl 5 MG TAB PO SCH (21:54)
[2022-03-27] MEDS: Atorvastatin Calcium 40 MG TAB PO SCH (21:54)
[2022-03-27] MEDS: traZODone HCl 50 MG TAB PO SCH (21:55)
[2022-03-28] MEDS: Piperacillin/Tazobactam 3.375 GM in Sodium Chloride 0.9% 100 ML IVPB SCH ×2 (05:48→18:38)
[2022-03-28] MEDS ORDERED: Iopamidol 0 ML ONE (06:46)
[2022-03-28] MEDS ORDERED: Bupivacaine/Epinephrine 0.25% 30 ML VIAL ONE (06:46)
[2022-03-28] MEDS ORDERED: Fentanyl 250 MCG/5 ML VIAL ONE (09:31)
[2022-03-28] MEDS: Heparin 5,000 UNITS/ML VIAL SC SCH ×3 (09:39→21:35)
[2022-03-28] MEDS: Megestrol Acetate 40 MG TAB PO SCH ×2 (09:39→17:38)
[2022-03-28] MEDS: Sevelamer Carbonate 800 MG TAB PO SCH ×3 (09:39→17:38)
[2022-03-28] MEDS ORDERED: Ondansetron PF 4 MG/2 ML Vial ONE (10:12)
[2022-03-28] MEDS ORDERED: NEOSTIGMINE 3 MG/3 ML SYR 3 MG/3 ML SYRINGE ONE (10:12)
[2022-03-28] MEDS ORDERED: Rocuronium Bromide 10 MG/ML (10ML VIAL) ONE (10:12)
[2022-03-28] MEDS ORDERED: Glycopyrrolate 0.2 MG/ML 5 ML SYRINGE ONE (10:12)
[2022-03-28] MEDS ORDERED: PHENYLEPHRINE-NS 100 MCG/ML 10 ML SYRINGE ONE (10:12)
[2022-03-28] MEDS ORDERED: Calcium Chloride 1 GM/10 ML Abboject SYRINGE ONE (10:12)
[2022-03-28] MEDS ORDERED: Lidocaine 1% PF 5 ML VIAL ONE (10:12)
[2022-03-28] MEDS ORDERED: PROPOFOL 200 MG/20 ML VIAL ONE (10:12)
[2022-03-28] MEDS ORDERED: Dexamethasone 20 MG/5 ML VIAL ONE (10:12)
[2022-03-28] MEDS ORDERED: Phenylephrine 10 MG/ML VIAL ONE ×2 (10:34→11:12)
[2022-03-28] MEDS: Aspirin 81 mg Enteric Coated Tablet PO SCH (10:48)
[2022-03-28] MEDS: Ferrous Sulfate 325 MG TAB PO SCH (10:48)
[2022-03-28] MEDS: Tamsulosin HCl 0.4 MG CAP PO SCH (10:48)
[2022-03-28] MEDS ORDERED: SUGAMMADEX SODIUM 200 MG/2 ML VIAL ONE (13:44)
[2022-03-28] MEDS ORDERED: Ondansetron HCl/PF 4 MG/2 ML Vial IVP PRN (14:02)
[2022-03-28] MEDS ORDERED: Promethazine HCl 25 MG/ML VIAL IM PRN (14:02)
[2022-03-28] MEDS ORDERED: NOREPINEPHRINE 8 MG/250 ML-D5W 250 ML IVPB SCH (14:15)
[2022-03-28] MEDS ORDERED: Acetaminophen/Codeine 30-300mg Tablet PO PRN (14:18)
[2022-03-28] MEDS ORDERED: Albumin 25% 25 GM/100 ML BOT IVPB SCH (14:45)
[2022-03-28] MEDS ORDERED: Fentanyl 100 MCG/2 ML VIAL ONE (14:53)
[2022-03-28] MEDS: Acetaminophen 325 MG TAB PO SCH ×2 (16:21→21:29)
[2022-03-28 17:29] LABS: Anion Gap 23 mmol/L (10-20); BUN (Urea Nitrogen) 71 mg/dL (8.4-25.7); Calc. Creatinine Clearance 6 mL/min (70-130); Calcium 9.3 mg/dL (7.8-10.44); Carbon Dioxide 18 mmol/L (23-31); Chloride 99 mmol/L (98-107); Estimated GFR 4; Glucose 191 mg/dL (83-110); Potassium 4.3 mmol/L (3.5-5.1); Sodium 136 mmol/L (136-145)
[2022-03-28] MEDS: EPOETIN ALFA-EPBX (ESRD) 10,000 UNIT/ML VIAL SC SCH (17:39)
[2022-03-28 18:21] LABS: Hemoglobin 7.2 g/dL (14.0-18.0); Mean Corpuscular HGB CONC 33.1 g/dL (32.0-36.0); Mean Corpuscular Hemoglobin 30.2 pg (27.0-31.0); Mean Corpuscular Volume 91.2 fl (78.0-98.0); Mean Platelet Volume 8.5 fL (7.4-10.4); Platelet Count 250 10x3/uL (130-400); RBC Distribution Width 14.4 % (11.5-14.5); Red Blood Cell (RBC) Count 2.37 mill/uL (4.70-6.10); White Blood Cell (WBC) Count 14.9 10x3/uL (4.8-10.8)
[2022-03-28 18:53] LABS: Band 18 % (5-11); Lymphocytes 2 % (21-51); MDiff Complete? YES; Monocytes 2 % (0-10); Neutrophil 78 % (42-75); Platelet Morphology Comment Appears Adequate; RBC Morphology Normal
[2022-03-28] MEDS: traZODone HCl 50 MG TAB PO SCH (21:29)
[2022-03-28] MEDS: Atorvastatin Calcium 40 MG TAB PO SCH (21:29)
[2022-03-28] MEDS: Donepezil HCl 5 MG TAB PO SCH (21:30)
[2022-03-29] MEDS: Acetaminophen 325 MG TAB PO SCH ×4 (03:05→20:12)
[2022-03-29 04:18] LABS: ALT (SGPT) 29 U/L (8-55); AST (SGOT) 42 U/L (5-34); Albumin 2.4 g/dL (3.4-4.8); Alkaline Phosphatase 103 U/L (40-110); Anion Gap 23 mmol/L (10-20); BUN (Urea Nitrogen) 86 mg/dL (8.4-25.7); Bilirubin, Direct 0.6 mg/dL (0.1-0.3); Calc. Creatinine Clearance 5 mL/min (70-130); Calcium 9.9 mg/dL (7.8-10.44); Carbon Dioxide 20 mmol/L (23-31); Chloride 98 mmol/L (98-107); Estimated GFR 4; Glucose 144 mg/dL (83-110); Potassium 4.7 mmol/L (3.5-5.1); Protein, Total 5.6 g/dL (5.8-8.1); Sodium 136 mmol/L (136-145)
[2022-03-29 04:39] LABS: Band 7 % (5-11); Hemoglobin 7.2 g/dL (14.0-18.0); Lymphocytes 3 % (21-51); MDiff Complete? YES; Mean Corpuscular HGB CONC 32.8 g/dL (32.0-36.0); Mean Corpuscular Hemoglobin 29.6 pg (27.0-31.0); Mean Corpuscular Volume 90.3 fl (78.0-98.0); Mean Platelet Volume 8.5 fL (7.4-10.4); Monocytes 2 % (0-10); Neutrophil 88 % (42-75); Platelet Count 286 10x3/uL (130-400); RBC Distribution Width 14.7 % (11.5-14.5); Red Blood Cell (RBC) Count 2.44 mill/uL (4.70-6.10)
[2022-03-29] MEDS: Piperacillin/Tazobactam 3.375 GM in Sodium Chloride 0.9% 100 ML IVPB SCH ×2 (05:03→17:33)
[2022-03-29] MEDS: Tamsulosin HCl 0.4 MG CAP PO SCH (08:48)
[2022-03-29] MEDS: Aspirin 81 mg Enteric Coated Tablet PO SCH (08:50)
[2022-03-29] MEDS: Heparin 5,000 UNITS/ML VIAL SC SCH ×3 (08:55→20:29)
[2022-03-29] MEDS: Saccharomyces boulardii 250 MG CAP PO SCH (09:14)
[2022-03-29] MEDS: Sevelamer Carbonate 800 MG TAB PO SCH ×3 (09:14→17:19)
[2022-03-29] MEDS: Megestrol Acetate 40 MG TAB PO SCH ×2 (10:37→17:18)
[2022-03-29] MEDS ORDERED: Famotidine/PF 20 mg/2ml Vial SLOW IVP SCH (11:00)
[2022-03-29] MEDS: Atorvastatin Calcium 40 MG TAB PO SCH (20:14)
[2022-03-29] MEDS: traZODone HCl 50 MG TAB PO SCH (20:14)
[2022-03-29] MEDS: Donepezil HCl 5 MG TAB PO SCH (20:14)
[2022-03-29 21:00] LABS: #Lymphocytes 1.1 thou/uL (1.20-3.40); #Monocytes 1.3 thou/uL (0.11-0.59); #Neutrophils 14.8 thou/uL (1.40-6.50); %Basophils 0.1 % (0.0-1.0); %Lymphocytes 6.3 % (21.0-51.0); %Monocytes 7.4 % (0.0-10.0); %Neutrophils 86.2 % (42.0-75.0); Hemoglobin 7.1 g/dL (14.0-18.0); Mean Corpuscular HGB CONC 32.6 g/dL (32.0-36.0); Mean Corpuscular Hemoglobin 28.7 pg (27.0-31.0); Mean Corpuscular Volume 88.2 fl (78.0-98.0); Mean Platelet Volume 7.9 fL (7.4-10.4); Platelet Count 212 10x3/uL (130-400); RBC Distribution Width 14.8 % (11.5-14.5); Red Blood Cell (RBC) Count 2.46 mill/uL (4.70-6.10); White Blood Cell (WBC) Count 17.2 10x3/uL (4.8-10.8)
[2022-03-30] MEDS: Acetaminophen 325 MG TAB PO SCH ×4 (02:08→20:46)
[2022-03-30 04:05] LABS: #Lymphocytes 1.2 thou/uL (1.20-3.40); #Monocytes 1.2 thou/uL (0.11-0.59); #Neutrophils 14.3 thou/uL (1.40-6.50); %Basophils 0.1 % (0.0-1.0); %Eosinophils 0.1 % (0.0-10.0); %Lymphocytes 7.4 % (21.0-51.0); %Monocytes 7.3 % (0.0-10.0); %Neutrophils 85.2 % (42.0-75.0); Mean Corpuscular HGB CONC 33.5 g/dL (32.0-36.0); Mean Corpuscular Hemoglobin 29.5 pg (27.0-31.0); Mean Corpuscular Volume 88.1 fl (78.0-98.0); Mean Platelet Volume 8.4 fL (7.4-10.4); Platelet Count 205 10x3/uL (130-400); RBC Distribution Width 14.9 % (11.5-14.5); Red Blood Cell (RBC) Count 2.71 mill/uL (4.70-6.10); White Blood Cell (WBC) Count 16.8 10x3/uL (4.8-10.8)
[2022-03-30 04:22] LABS: INR-International Normal Ratio 1.1
[2022-03-30 04:28] LABS: Anion Gap 14 mmol/L (10-20); BUN (Urea Nitrogen) 52 mg/dL (8.4-25.7); Calc. Creatinine Clearance 9 mL/min (70-130); Calcium 9.2 mg/dL (7.8-10.44); Carbon Dioxide 25 mmol/L (23-31); Chloride 100 mmol/L (98-107); Estimated GFR 7; Glucose 114 mg/dL (83-110); Phosphorus 5.5 mg/dL (2.3-4.7); Potassium 4.2 mmol/L (3.5-5.1); Sodium 135 mmol/L (136-145)
[2022-03-30] MEDS: Piperacillin/Tazobactam 3.375 GM in Sodium Chloride 0.9% 100 ML IVPB SCH ×2 (05:10→18:35)
[2022-03-30] MEDS: Sevelamer Carbonate 800 MG TAB PO SCH ×3 (09:30→16:09)
[2022-03-30] MEDS: Aspirin 81 mg Enteric Coated Tablet PO SCH (09:48)
[2022-03-30] MEDS: Saccharomyces boulardii 250 MG CAP PO SCH (09:48)
[2022-03-30] MEDS: Heparin 5,000 UNITS/ML VIAL SC SCH ×3 (09:49→20:45)
[2022-03-30] MEDS: Megestrol Acetate 40 MG TAB PO SCH ×2 (09:50→16:02)
[2022-03-30] MEDS: Ferrous Sulfate 325 MG TAB PO SCH (09:50)
[2022-03-30] MEDS: Tamsulosin HCl 0.4 MG CAP PO SCH (09:52)
[2022-03-30] MEDS: Atorvastatin Calcium 40 MG TAB PO SCH (20:45)
[2022-03-30] MEDS: Donepezil HCl 5 MG TAB PO SCH (20:45)
[2022-03-31] MEDS: Acetaminophen 325 MG TAB PO SCH ×4 (03:35→20:58)
[2022-03-31 05:38] LABS: #Eosinphils 0.1 thou/uL (0.0-0.7); #Lymphocytes 1.3 thou/uL (1.20-3.40); #Monocytes 1.1 thou/uL (0.11-0.59); #Neutrophils 11.5 thou/uL (1.40-6.50); %Basophils 0.3 % (0.0-1.0); %Eosinophils 0.7 % (0.0-10.0); %Lymphocytes 9.5 % (21.0-51.0); %Monocytes 7.5 % (0.0-10.0); Hemoglobin 7.9 g/dL (14.0-18.0); Mean Corpuscular HGB CONC 33.3 g/dL (32.0-36.0); Mean Corpuscular Hemoglobin 29.5 pg (27.0-31.0); Mean Corpuscular Volume 88.4 fl (78.0-98.0); Mean Platelet Volume 8.2 fL (7.4-10.4); Platelet Count 202 10x3/uL (130-400); RBC Distribution Width 14.8 % (11.5-14.5); Red Blood Cell (RBC) Count 2.67 mill/uL (4.70-6.10)
[2022-03-31] MEDS: Piperacillin/Tazobactam 3.375 GM in Sodium Chloride 0.9% 100 ML IVPB SCH ×2 (05:51→17:40)
[2022-03-31 05:54] LABS: Anion Gap 18 mmol/L (10-20); BUN (Urea Nitrogen) 75 mg/dL (8.4-25.7); Calc. Creatinine Clearance 7 mL/min (70-130); Calcium 8.3 mg/dL (7.8-10.44); Carbon Dioxide 22 mmol/L (23-31); Chloride 101 mmol/L (98-107); Estimated GFR 5; Glucose 112 mg/dL (83-110); Magnesium 2.1 mg/dL (1.6-2.6); Phosphorus 6.6 mg/dL (2.3-4.7); Sodium 137 mmol/L (136-145)
[2022-03-31] MEDS: Heparin 5,000 UNITS/ML VIAL SC SCH ×3 (08:41→20:58)
[2022-03-31] MEDS: Aspirin 81 mg Enteric Coated Tablet PO SCH (08:42)
[2022-03-31] MEDS: Sevelamer Carbonate 800 MG TAB PO SCH (08:42)
[2022-03-31] MEDS: Saccharomyces boulardii 250 MG CAP PO SCH (08:42)
[2022-03-31] MEDS: Tamsulosin HCl 0.4 MG CAP PO SCH (08:42)
[2022-03-31] MEDS: Megestrol Acetate 40 MG TAB PO SCH ×2 (08:42→17:40)
[2022-03-31] MEDS ORDERED: Sevelamer 2.4 GM PACKET PO SCH (15:00)
[2022-03-31] MEDS: Sevelamer 2.4 GM PACKET PO SCH (17:40)
[2022-03-31] MEDS: Famotidine/PF 20 mg/2ml Vial SLOW IVP SCH (20:58)
[2022-03-31] MEDS: Atorvastatin Calcium 40 MG TAB PO SCH (20:58)
[2022-03-31] MEDS: Donepezil HCl 5 MG TAB PO SCH (20:58)
[2022-03-31] MEDS: Senokot S 8.6-50 MG TAB PO SCH (20:59)
[2022-04-01] MEDS: Acetaminophen 325 MG TAB PO SCH ×4 (04:17→21:13)
[2022-04-01] MEDS: Piperacillin/Tazobactam 3.375 GM in Sodium Chloride 0.9% 100 ML IVPB SCH (04:55)
[2022-04-01] MEDS: Tamsulosin HCl 0.4 MG CAP PO SCH (09:45)
[2022-04-01] MEDS: Megestrol Acetate 40 MG TAB PO SCH ×2 (09:45→15:45)
[2022-04-01] MEDS: Heparin 5,000 UNITS/ML VIAL SC SCH ×4 (09:46→21:14)
[2022-04-01] MEDS: Ferrous Sulfate 325 MG TAB PO SCH (09:46)
[2022-04-01] MEDS: Saccharomyces boulardii 250 MG CAP PO SCH (09:46)
[2022-04-01] MEDS: Aspirin 81 mg Enteric Coated Tablet PO SCH (09:46)
[2022-04-01] MEDS: Sevelamer 2.4 GM PACKET PO SCH ×3 (09:52→18:22)
[2022-04-01] MEDS: Senokot S 8.6-50 MG TAB PO SCH ×2 (09:53→21:13)
[2022-04-01] MEDS: Polyethylene Glycol 3350 17 GM Packet PO SCH (12:33)
[2022-04-01] MEDS: cefTRIAXone\\ROCEPHIN 2 GM in Sodium Chloride 0.9% 100 ML IVPB SCH (18:22)
[2022-04-01] MEDS: Atorvastatin Calcium 40 MG TAB PO SCH (21:13)
[2022-04-01] MEDS: Donepezil HCl 5 MG TAB PO SCH (21:13)
[2022-04-02] MEDS: Acetaminophen 325 MG TAB PO SCH ×4 (03:49→21:40)
[2022-04-02 06:01] LABS: Anion Gap 16 mmol/L (10-20); BUN (Urea Nitrogen) 56 mg/dL (8.4-25.7); Calc. Creatinine Clearance 8 mL/min (70-130); Calcium 8.7 mg/dL (7.8-10.44); Carbon Dioxide 25 mmol/L (23-31); Chloride 100 mmol/L (98-107); Estimated GFR 6; Glucose 102 mg/dL (83-110); Potassium 4.2 mmol/L (3.5-5.1); Sodium 137 mmol/L (136-145)
[2022-04-02 06:14] LABS: Band 10 % (5-11); Eosinophils 1 % (0-10); Hemoglobin 8.2 g/dL (14.0-18.0); Hypochromia SLIGHT = 6-15 cells (100X) (0-5/hpf); Lymphocytes 2 % (21-51); MDiff Complete? YES; Mean Corpuscular HGB CONC 33.1 g/dL (32.0-36.0); Mean Corpuscular Hemoglobin 30.1 pg (27.0-31.0); Mean Corpuscular Volume 90.9 fl (78.0-98.0); Mean Platelet Volume 8.3 fL (7.4-10.4); Monocytes 8 % (0-10); Neutrophil 79 % (42-75); Platelet Count 227 10x3/uL (130-400); Platelet Morphology Comment Appears Adequate; RBC Distribution Width 14.8 % (11.5-14.5); Red Blood Cell (RBC) Count 2.73 mill/uL (4.70-6.10); White Blood Cell (WBC) Count 14.2 10x3/uL (4.8-10.8)
[2022-04-02] MEDS: Heparin 5,000 UNITS/ML VIAL SC SCH ×4 (09:00→21:40)
[2022-04-02] MEDS: Aspirin 81 mg Enteric Coated Tablet PO SCH (09:00)
[2022-04-02] MEDS: Sevelamer 2.4 GM PACKET PO SCH ×3 (09:00→16:35)
[2022-04-02] MEDS: Polyethylene Glycol 3350 17 GM Packet PO SCH (09:00)
[2022-04-02] MEDS: Saccharomyces boulardii 250 MG CAP PO SCH (09:00)
[2022-04-02] MEDS: Senokot S 8.6-50 MG TAB PO SCH ×2 (12:27→21:41)
[2022-04-02] MEDS: cefTRIAXone\\ROCEPHIN 2 GM in Sodium Chloride 0.9% 100 ML IVPB SCH (16:30)
[2022-04-02] MEDS: Atorvastatin Calcium 40 MG TAB PO SCH (21:40)
[2022-04-02] MEDS: Donepezil HCl 5 MG TAB PO SCH (21:40)
[2022-04-02] MEDS: Famotidine/PF 20 mg/2ml Vial SLOW IVP SCH (21:59)
[2022-04-02] MEDS: Megestrol Acetate 40 MG TAB PO SCH (22:00)
[2022-04-03] MEDS: Acetaminophen 325 MG TAB PO SCH ×4 (02:28→21:08)
[2022-04-03] MEDS: Saccharomyces boulardii 250 MG CAP PO SCH (08:11)
[2022-04-03] MEDS: Senokot S 8.6-50 MG TAB PO SCH ×2 (08:11→21:08)
[2022-04-03] MEDS: Sevelamer 2.4 GM PACKET PO SCH ×3 (08:11→16:38)
[2022-04-03] MEDS: Ferrous Sulfate 325 MG TAB PO SCH (08:11)
[2022-04-03] MEDS: Heparin 5,000 UNITS/ML VIAL SC SCH ×3 (08:12→21:09)
[2022-04-03] MEDS: Aspirin 81 mg Enteric Coated Tablet PO SCH (08:12)
[2022-04-03] MEDS: Polyethylene Glycol 3350 17 GM Packet PO SCH (08:13)
[2022-04-03] MEDS: cefTRIAXone\\ROCEPHIN 2 GM in Sodium Chloride 0.9% 100 ML IVPB SCH (16:38)
[2022-04-03] MEDS: Atorvastatin Calcium 40 MG TAB PO SCH (21:08)
[2022-04-03] MEDS: Donepezil HCl 5 MG TAB PO SCH (21:08)
[2022-04-03] MEDS: Famotidine 20 MG TAB PO SCH (21:09)
[2022-04-04] MEDS: Acetaminophen 325 MG TAB PO SCH ×4 (02:38→20:03)
[2022-04-04 06:30] LABS: #Eosinphils 0.2 thou/uL (0.0-0.7); #Lymphocytes 1.7 thou/uL (1.20-3.40); #Monocytes 1.2 thou/uL (0.11-0.59); #Neutrophils 11.6 thou/uL (1.40-6.50); %Basophils 0.2 % (0.0-1.0); %Eosinophils 1.6 % (0.0-10.0); %Lymphocytes 11.4 % (21.0-51.0); %Monocytes 8.3 % (0.0-10.0); %Neutrophils 78.6 % (42.0-75.0); Hemoglobin 8.9 g/dL (14.0-18.0); Mean Corpuscular HGB CONC 32.3 g/dL (32.0-36.0); Mean Corpuscular Hemoglobin 29.6 pg (27.0-31.0); Mean Corpuscular Volume 91.9 fl (78.0-98.0); Mean Platelet Volume 8.5 fL (7.4-10.4); Platelet Count 330 10x3/uL (130-400); RBC Distribution Width 14.6 % (11.5-14.5); Red Blood Cell (RBC) Count 2.99 mill/uL (4.70-6.10); White Blood Cell (WBC) Count 14.8 10x3/uL (4.8-10.8)
[2022-04-04 06:48] LABS: Anion Gap 16 mmol/L (10-20); BUN (Urea Nitrogen) 38 mg/dL (8.4-25.7); Calc. Creatinine Clearance 10 mL/min (70-130); Carbon Dioxide 26 mmol/L (23-31); Chloride 100 mmol/L (98-107); Estimated GFR 8; Glucose 93 mg/dL (83-110); Sodium 138 mmol/L (136-145)
[2022-04-04] MEDS ORDERED: Activase 2 MG VIAL CATH SCH (09:30)
[2022-04-04] MEDS: Sevelamer 2.4 GM PACKET PO SCH ×3 (10:18→17:48)
[2022-04-04] MEDS: Aspirin 81 mg Enteric Coated Tablet PO SCH (10:19)
[2022-04-04] MEDS: Saccharomyces boulardii 250 MG CAP PO SCH (10:19)
[2022-04-04] MEDS: Heparin 5,000 UNITS/ML VIAL SC SCH ×3 (10:19→20:03)
[2022-04-04] MEDS: Polyethylene Glycol 3350 17 GM Packet PO SCH (10:19)
[2022-04-04] MEDS: Senokot S 8.6-50 MG TAB PO SCH ×2 (10:20→20:04)
[2022-04-04] MEDS ORDERED: PERITON DIALYSIS FS SCH (11:30)
[2022-04-04] MEDS ORDERED: HEPARIN FS SCH (11:30)
[2022-04-04] MEDS: EPOETIN ALFA-EPBX (ESRD) 10,000 UNIT/ML VIAL SC SCH (17:49)
[2022-04-04] MEDS: Donepezil HCl 5 MG TAB PO SCH (20:03)
[2022-04-04] MEDS: Atorvastatin Calcium 40 MG TAB PO SCH (20:04)
[2022-04-04] MEDS: Amoxicillin/Potassium Clav 875 MG TAB PO SCH (20:04)
[2022-04-05] MEDS: Acetaminophen 325 MG TAB PO SCH ×4 (03:02→20:44)
[2022-04-05 06:14] LABS: #Eosinphils 0.1 thou/uL (0.0-0.7); #Lymphocytes 1.2 thou/uL (1.20-3.40); #Monocytes 1.4 thou/uL (0.11-0.59); #Neutrophils 12.3 thou/uL (1.40-6.50); %Basophils 0.1 % (0.0-1.0); %Lymphocytes 8.3 % (21.0-51.0); %Neutrophils 81.7 % (42.0-75.0); Hemoglobin 9.2 g/dL (14.0-18.0); Mean Corpuscular Hemoglobin 29.2 pg (27.0-31.0); Mean Corpuscular Volume 91.3 fl (78.0-98.0); Mean Platelet Volume 8.4 fL (7.4-10.4); Platelet Count 386 10x3/uL (130-400); RBC Distribution Width 14.5 % (11.5-14.5); Red Blood Cell (RBC) Count 3.14 mill/uL (4.70-6.10)
[2022-04-05 06:41] LABS: Anion Gap 17 mmol/L (10-20); BUN (Urea Nitrogen) 47 mg/dL (8.4-25.7); Calc. Creatinine Clearance 8 mL/min (70-130); Carbon Dioxide 26 mmol/L (23-31); Chloride 100 mmol/L (98-107); Estimated GFR 6; Glucose 103 mg/dL (83-110); Potassium 4.1 mmol/L (3.5-5.1); Sodium 139 mmol/L (136-145)
[2022-04-05] MEDS: Sevelamer 2.4 GM PACKET PO SCH ×3 (08:44→17:52)
[2022-04-05] MEDS: Senokot S 8.6-50 MG TAB PO SCH ×3 (08:44→20:44)
[2022-04-05] MEDS: Polyethylene Glycol 3350 17 GM Packet PO SCH ×2 (08:44)
[2022-04-05] MEDS: Amoxicillin/Potassium Clav 875 MG TAB PO SCH (08:45)
[2022-04-05] MEDS: Saccharomyces boulardii 250 MG CAP PO SCH (08:47)
[2022-04-05] MEDS: Aspirin 81 mg Enteric Coated Tablet PO SCH (08:47)
[2022-04-05] MEDS: Ferrous Sulfate 325 MG TAB PO SCH (08:47)
[2022-04-05] MEDS: Heparin 5,000 UNITS/ML VIAL SC SCH ×3 (08:48→20:44)
[2022-04-05] MEDS: Atorvastatin Calcium 40 MG TAB PO SCH (20:43)
[2022-04-05] MEDS: Amoxicillin/Potassium Clav 500 MG TAB PO SCH (20:43)
[2022-04-05] MEDS: Famotidine 20 MG TAB PO SCH (20:43)
[2022-04-05] MEDS: Donepezil HCl 5 MG TAB PO SCH (20:49)
[2022-04-06] MEDS: Acetaminophen 325 MG TAB PO SCH ×4 (03:42→21:43)
[2022-04-06 06:03] LABS: #Eosinphils 0.3 thou/uL (0.0-0.7); #Lymphocytes 1.8 thou/uL (1.20-3.40); #Monocytes 1.5 thou/uL (0.11-0.59); #Neutrophils 12.5 thou/uL (1.40-6.50); %Basophils 0.1 % (0.0-1.0); %Eosinophils 1.8 % (0.0-10.0); %Lymphocytes 11.4 % (21.0-51.0); %Monocytes 9.2 % (0.0-10.0); %Neutrophils 77.4 % (42.0-75.0); Hemoglobin 8.7 g/dL (14.0-18.0); Mean Corpuscular HGB CONC 32.7 g/dL (32.0-36.0); Mean Corpuscular Hemoglobin 29.9 pg (27.0-31.0); Mean Corpuscular Volume 91.3 fl (78.0-98.0); Mean Platelet Volume 8.6 fL (7.4-10.4); Platelet Count 384 10x3/uL (130-400); RBC Distribution Width 14.6 % (11.5-14.5); White Blood Cell (WBC) Count 16.1 10x3/uL (4.8-10.8)
[2022-04-06 06:25] LABS: Anion Gap 21 mmol/L (10-20); BUN (Urea Nitrogen) 59 mg/dL (8.4-25.7); Calc. Creatinine Clearance 7 mL/min (70-130); Calcium 8.9 mg/dL (7.8-10.44); Carbon Dioxide 22 mmol/L (23-31); Chloride 100 mmol/L (98-107); Estimated GFR 5; Glucose 97 mg/dL (83-110); Potassium 4.5 mmol/L (3.5-5.1); Sodium 138 mmol/L (136-145)
[2022-04-06] MEDS: Sevelamer 2.4 GM PACKET PO SCH ×3 (08:00→17:59)
[2022-04-06] MEDS: Amoxicillin/Potassium Clav 500 MG TAB PO SCH ×2 (10:53→21:43)
[2022-04-06] MEDS: Saccharomyces boulardii 250 MG CAP PO SCH (10:55)
[2022-04-06] MEDS: Aspirin 81 mg Enteric Coated Tablet PO SCH (10:56)
[2022-04-06] MEDS: Heparin 5,000 UNITS/ML VIAL SC SCH ×3 (10:58→21:45)
[2022-04-06] MEDS ORDERED: Heparin 10,000 UNITS/ 10 ML VIAL ONE (12:30)
[2022-04-06] MEDS: Atorvastatin Calcium 40 MG TAB PO SCH (21:43)
[2022-04-06] MEDS: Donepezil HCl 5 MG TAB PO SCH (21:43)
[2022-04-07] MEDS: Acetaminophen 325 MG TAB PO SCH ×4 (02:55→20:49)
[2022-04-07] MEDS ORDERED: Pantoprazole 40 MG VIAL IVP SCH (06:15)
[2022-04-07 06:21] LABS: #Eosinphils 0.2 thou/uL (0.0-0.7); #Lymphocytes 1.6 thou/uL (1.20-3.40); #Monocytes 1.6 thou/uL (0.11-0.59); #Neutrophils 14.5 thou/uL (1.40-6.50); %Basophils 0.2 % (0.0-1.0); %Eosinophils 1.2 % (0.0-10.0); %Monocytes 8.7 % (0.0-10.0); %Neutrophils 80.9 % (42.0-75.0); Hemoglobin 7.9 g/dL (14.0-18.0); Mean Corpuscular HGB CONC 32.1 g/dL (32.0-36.0); Mean Corpuscular Hemoglobin 29.5 pg (27.0-31.0); Mean Platelet Volume 8.5 fL (7.4-10.4); Platelet Count 474 10x3/uL (130-400); RBC Distribution Width 14.9 % (11.5-14.5); Red Blood Cell (RBC) Count 2.67 mill/uL (4.70-6.10); White Blood Cell (WBC) Count 17.9 10x3/uL (4.8-10.8)
[2022-04-07 06:36] LABS: Anion Gap 15 mmol/L (10-20); BUN (Urea Nitrogen) 35 mg/dL (8.4-25.7); Calc. Creatinine Clearance 11 mL/min (70-130); Calcium 8.8 mg/dL (7.8-10.44); Carbon Dioxide 25 mmol/L (23-31); Chloride 105 mmol/L (98-107); Estimated GFR 10; Glucose 116 mg/dL (83-110); Potassium 4.5 mmol/L (3.5-5.1); Sodium 140 mmol/L (136-145)
[2022-04-07] MEDS: Ferrous Sulfate 325 MG TAB PO SCH (08:37)
[2022-04-07] MEDS: Saccharomyces boulardii 250 MG CAP PO SCH (08:37)
[2022-04-07] MEDS: Sevelamer 2.4 GM PACKET PO SCH ×3 (08:37→18:36)
[2022-04-07] MEDS: Aspirin 81 mg Enteric Coated Tablet PO SCH (08:37)
[2022-04-07] MEDS: cefTRIAXone\\ROCEPHIN 1 GM in Sodium Chloride 0.9% 100 ML IVPB SCH (15:10)
[2022-04-07] MEDS ORDERED: GASTROGRAFIN 30 ML BOT ONE (15:37)
[2022-04-07] MEDS ORDERED: Iopamidol-370 76% 500 ML 1 ML ONE (15:37)
[2022-04-07] MEDS: Atorvastatin Calcium 40 MG TAB PO SCH (20:48)
[2022-04-07] MEDS: Donepezil HCl 5 MG TAB PO SCH (20:48)
[2022-04-07] MEDS: Pantoprazole 40 MG VIAL IVP SCH (20:49)
[2022-04-08] MEDS: Acetaminophen 325 MG TAB PO SCH ×4 (05:23→20:26)
[2022-04-08 06:15] LABS: #Basophils 0.1 thou/uL (0.0-0.2); #Eosinphils 0.5 thou/uL (0.0-0.7); #Lymphocytes 2.1 thou/uL (1.20-3.40); #Monocytes 1.6 thou/uL (0.11-0.59); #Neutrophils 12.4 thou/uL (1.40-6.50); %Basophils 0.4 % (0.0-1.0); %Eosinophils 2.7 % (0.0-10.0); %Lymphocytes 12.7 % (21.0-51.0); %Monocytes 9.8 % (0.0-10.0); %Neutrophils 74.4 % (42.0-75.0); Hemoglobin 7.5 g/dL (14.0-18.0); Mean Corpuscular HGB CONC 31.6 g/dL (32.0-36.0); Mean Platelet Volume 8.4 fL (7.4-10.4); Platelet Count 509 10x3/uL (130-400); RBC Distribution Width 14.7 % (11.5-14.5); Red Blood Cell (RBC) Count 2.57 mill/uL (4.70-6.10); White Blood Cell (WBC) Count 16.6 10x3/uL (4.8-10.8)
[2022-04-08 06:35] LABS: Anion Gap 17 mmol/L (10-20); BUN (Urea Nitrogen) 54 mg/dL (8.4-25.7); Calc. Creatinine Clearance 8 mL/min (70-130); Calcium 9.1 mg/dL (7.8-10.44); Carbon Dioxide 22 mmol/L (23-31); Chloride 104 mmol/L (98-107); Estimated GFR 7; Glucose 77 mg/dL (83-110); Potassium 4.8 mmol/L (3.5-5.1); Sodium 138 mmol/L (136-145)
[2022-04-08 06:39] LABS: ALT (SGPT) 26 U/L (8-55); AST (SGOT) 76 U/L (5-34); Alkaline Phosphatase 164 U/L (40-110); Bilirubin, Direct 0.3 mg/dL (0.1-0.3); Bilirubin, Total 0.4 mg/dL (0.2-1.2); Protein, Total 5.4 g/dL (5.8-8.1)
[2022-04-08] MEDS: Sevelamer 2.4 GM PACKET PO SCH ×3 (10:48→18:57)
[2022-04-08] MEDS: Pantoprazole 40 MG VIAL IVP SCH ×2 (10:48→20:34)
[2022-04-08] MEDS: Saccharomyces boulardii 250 MG CAP PO SCH (10:48)
[2022-04-08] MEDS: Aspirin 81 mg Enteric Coated Tablet PO SCH (10:48)
[2022-04-08] MEDS ORDERED: fentaNYL PF 100 MCG/2 ML SYRINGE ONE (12:58)
[2022-04-08] MEDS ORDERED: SUGAMMADEX SODIUM 200 MG/2 ML VIAL ONE (12:59)
[2022-04-08] MEDS ORDERED: Heparin 10,000 UNITS/ 10 ML VIAL ONE ×2 (13:33→14:45)
[2022-04-08] MEDS ORDERED: Bupivacaine HCl 0.5%/Epinephrine 1:200,000/PF 30 ml Vial ONE (13:33)
[2022-04-08] MEDS ORDERED: Lidocaine Jelly 2% Urojet 10 ML ONE (13:33)
[2022-04-08] MEDS ORDERED: Lidocaine 2% PF 5 ML VIAL ONE (13:34)
[2022-04-08] MEDS ORDERED: cefTRIAXone\\ROCEPHIN 1 GM VIAL ONE (14:00)
[2022-04-08] MEDS ORDERED: Sodium Chloride 0.9% 100 ML ONE (14:00)
[2022-04-08] MEDS ORDERED: Glycopyrrolate 0.2 MG/ML 5 ML SYRINGE ONE (14:05)
[2022-04-08] MEDS ORDERED: Rocuronium Bromide 10 MG/ML (10ML VIAL) ONE (14:05)
[2022-04-08] MEDS ORDERED: NEOSTIGMINE 3 MG/3 ML SYR 3 MG/3 ML SYRINGE ONE (14:05)
[2022-04-08] MEDS ORDERED: PROPOFOL 200 MG/20 ML VIAL ONE (14:05)
[2022-04-08] MEDS ORDERED: Ondansetron PF 4 MG/2 ML Vial ONE (14:05)
[2022-04-08] MEDS ORDERED: Ondansetron HCl/PF 4 MG/2 ML Vial IVP PRN (15:32)
[2022-04-08] MEDS ORDERED: Promethazine HCl 25 MG/ML VIAL IM PRN (15:32)
[2022-04-08] MEDS ORDERED: Acetaminophen 500 MG TAB PO PRN (15:33)
[2022-04-08] MEDS ORDERED: Acetaminophen 500 MG TAB PO SCH (15:45)
[2022-04-08] MEDS ORDERED: Albumin 5% 250 ML ONE (16:31)
[2022-04-08 16:34] LABS: #Basophils 0.1 thou/uL (0.0-0.2); #Eosinphils 0.2 thou/uL (0.0-0.7); #Lymphocytes 1.8 thou/uL (1.20-3.40); #Monocytes 1.2 thou/uL (0.11-0.59); #Neutrophils 13.8 thou/uL (1.40-6.50); %Basophils 0.5 % (0.0-1.0); %Eosinophils 1.2 % (0.0-10.0); %Lymphocytes 10.5 % (21.0-51.0); %Monocytes 7.2 % (0.0-10.0); %Neutrophils 80.6 % (42.0-75.0); Mean Corpuscular HGB CONC 32.3 g/dL (32.0-36.0); Mean Corpuscular Hemoglobin 29.7 pg (27.0-31.0); Mean Corpuscular Volume 91.9 fl (78.0-98.0); Platelet Count 572 10x3/uL (130-400); RBC Distribution Width 14.8 % (11.5-14.5); Red Blood Cell (RBC) Count 2.36 mill/uL (4.70-6.10); White Blood Cell (WBC) Count 17.1 10x3/uL (4.8-10.8)
[2022-04-08 16:44] LABS: Campy jejuni + coli by PCR Negative (Negative); STEC Shiga Toxin 1+2 Negative (Negative); Salmonella spp. by PCR Negative (Negative); Shigella spp + EIEC by PCR Negative (Negative)
[2022-04-08] MEDS ORDERED: Fentanyl 100 MCG/2 ML VIAL ONE (17:58)
[2022-04-08] MEDS: cefTRIAXone\\ROCEPHIN 1 GM in Sodium Chloride 0.9% 100 ML IVPB SCH (18:56)
[2022-04-08] MEDS: Donepezil HCl 5 MG TAB PO SCH (20:26)
[2022-04-08] MEDS: traMADol HCl 50 MG TAB PO PRN (20:27)
[2022-04-08] MEDS: Atorvastatin Calcium 40 MG TAB PO SCH (20:34)
[2022-04-08 23:36] LABS: Band 10 % (5-11); Hemoglobin 7.2 g/dL (14.0-18.0); Lymphocytes 3 % (21-51); MDiff Complete? YES; Mean Corpuscular HGB CONC 32.1 g/dL (32.0-36.0); Mean Corpuscular Hemoglobin 29.9 pg (27.0-31.0); Mean Platelet Volume 8.1 fL (7.4-10.4); Myelocyte 1 % (0-0); Neutrophil 86 % (42-75); Platelet Count 511 10x3/uL (130-400); RBC Distribution Width 14.5 % (11.5-14.5); Red Blood Cell (RBC) Count 2.39 mill/uL (4.70-6.10); White Blood Cell (WBC) Count 21.5 10x3/uL (4.8-10.8)
[2022-04-09] MEDS: Acetaminophen 325 MG TAB PO SCH ×4 (03:26→20:37)
[2022-04-09 05:53] LABS: #Eosinphils 0.1 thou/uL (0.0-0.7); #Lymphocytes 1.9 thou/uL (1.20-3.40); #Monocytes 1.3 thou/uL (0.11-0.59); #Neutrophils 15.5 thou/uL (1.40-6.50); %Basophils 0.1 % (0.0-1.0); %Eosinophils 0.5 % (0.0-10.0); %Monocytes 6.9 % (0.0-10.0); %Neutrophils 82.4 % (42.0-75.0); Hemoglobin 6.8 g/dL (14.0-18.0); Mean Corpuscular HGB CONC 32.5 g/dL (32.0-36.0); Mean Corpuscular Hemoglobin 30.4 pg (27.0-31.0); Mean Corpuscular Volume 93.3 fl (78.0-98.0); Mean Platelet Volume 8.2 fL (7.4-10.4); Platelet Count 517 10x3/uL (130-400); Red Blood Cell (RBC) Count 2.24 mill/uL (4.70-6.10); White Blood Cell (WBC) Count 18.9 10x3/uL (4.8-10.8)
[2022-04-09 06:31] LABS: ALT (SGPT) 23 U/L (8-55); AST (SGOT) 33 U/L (5-34); Albumin 2.3 g/dL (3.4-4.8); Alkaline Phosphatase 146 U/L (40-110); Anion Gap 18 mmol/L (10-20); BUN (Urea Nitrogen) 75 mg/dL (8.4-25.7); Bilirubin, Total 0.5 mg/dL (0.2-1.2); Calc. Creatinine Clearance 7 mL/min (70-130); Calcium 8.8 mg/dL (7.8-10.44); Carbon Dioxide 20 mmol/L (23-31); Chloride 106 mmol/L (98-107); Estimated GFR 5; Globulin 2.9 g/dL (2.4-3.5); Glucose 105 mg/dL (83-110); Protein, Total 5.2 g/dL (5.8-8.1); Sodium 138 mmol/L (136-145)
[2022-04-09 06:33] LABS: Potassium 6.4 mmol/L (3.5-5.1)
[2022-04-09] MEDS ORDERED: Dextrose 10% in Water 250 ML IV SCH (07:00)
[2022-04-09] MEDS ORDERED: Insulin Regular 300 UNITS/3 ML VIAL SC SCH (07:00)
[2022-04-09] MEDS: Sevelamer 2.4 GM PACKET PO SCH ×3 (08:31→18:29)
[2022-04-09] MEDS: Saccharomyces boulardii 250 MG CAP PO SCH (08:31)
[2022-04-09] MEDS: Aspirin 81 mg Enteric Coated Tablet PO SCH (08:31)
[2022-04-09] MEDS: Pantoprazole 40 MG VIAL IVP SCH ×2 (08:31→20:38)
[2022-04-09] MEDS ORDERED: Albumin 25% 25 GM/100 ML BOT IVPB PRN (10:44)
[2022-04-09] MEDS ORDERED: Iopamidol 300 61% 50 ML VIAL FS ONE (13:20)
[2022-04-09] MEDS ORDERED: Heparin 10,000 UNITS/ 10 ML VIAL ONE (14:45)
[2022-04-09] MEDS: cefTRIAXone\\ROCEPHIN 1 GM in Sodium Chloride 0.9% 100 ML IVPB SCH (15:51)
[2022-04-09] MEDS: Atorvastatin Calcium 40 MG TAB PO SCH (20:38)
[2022-04-09] MEDS: Donepezil HCl 5 MG TAB PO SCH (20:38)
[2022-04-10] MEDS: Acetaminophen 325 MG TAB PO SCH ×4 (03:09→21:39)
[2022-04-10 04:35] LABS: #Eosinphils 0.2 thou/uL (0.0-0.7); #Lymphocytes 1.7 thou/uL (1.20-3.40); #Monocytes 1.5 thou/uL (0.11-0.59); #Neutrophils 12.1 thou/uL (1.40-6.50); %Basophils 0.2 % (0.0-1.0); %Eosinophils 1.1 % (0.0-10.0); %Lymphocytes 11.1 % (21.0-51.0); %Monocytes 9.7 % (0.0-10.0); %Neutrophils 77.9 % (42.0-75.0); Hemoglobin 7.6 g/dL (14.0-18.0); Mean Corpuscular HGB CONC 32.1 g/dL (32.0-36.0); Mean Corpuscular Hemoglobin 29.4 pg (27.0-31.0); Mean Corpuscular Volume 91.5 fl (78.0-98.0); Mean Platelet Volume 7.9 fL (7.4-10.4); Platelet Count 403 10x3/uL (130-400); RBC Distribution Width 15.2 % (11.5-14.5); Red Blood Cell (RBC) Count 2.58 mill/uL (4.70-6.10); White Blood Cell (WBC) Count 15.5 10x3/uL (4.8-10.8)
[2022-04-10 04:46] LABS: Anion Gap 14 mmol/L (10-20); BUN (Urea Nitrogen) 37 mg/dL (8.4-25.7); Calc. Creatinine Clearance 12 mL/min (70-130); Calcium 8.7 mg/dL (7.8-10.44); Carbon Dioxide 27 mmol/L (23-31); Chloride 102 mmol/L (98-107); Estimated GFR 10; Glucose 84 mg/dL (83-110); Potassium 4.3 mmol/L (3.5-5.1); Sodium 139 mmol/L (136-145)
[2022-04-10] MEDS: Sevelamer 2.4 GM PACKET PO SCH ×3 (08:35→17:58)
[2022-04-10] MEDS: Saccharomyces boulardii 250 MG CAP PO SCH (08:36)
[2022-04-10] MEDS: Aspirin 81 mg Enteric Coated Tablet PO SCH (08:37)
[2022-04-10] MEDS: Pantoprazole 40 MG VIAL IVP SCH ×2 (08:38→21:39)
[2022-04-10] MEDS: EPOETIN ALFA-EPBX (ESRD) 10,000 UNIT/ML VIAL SC SCH (13:06)
[2022-04-10] MEDS: cefTRIAXone\\ROCEPHIN 1 GM in Sodium Chloride 0.9% 100 ML IVPB SCH (14:29)
[2022-04-10] MEDS: Donepezil HCl 5 MG TAB PO SCH (21:39)
[2022-04-10] MEDS: Atorvastatin Calcium 40 MG TAB PO SCH (21:39)
[2022-04-11] MEDS: Acetaminophen 325 MG TAB PO SCH ×4 (04:04→21:16)
[2022-04-11 06:52] LABS: #Basophils 0.1 thou/uL (0.0-0.2); #Eosinphils 0.5 thou/uL (0.0-0.7); #Lymphocytes 1.8 thou/uL (1.20-3.40); #Monocytes 1.3 thou/uL (0.11-0.59); #Neutrophils 10.8 thou/uL (1.40-6.50); %Basophils 0.5 % (0.0-1.0); %Eosinophils 3.7 % (0.0-10.0); %Lymphocytes 12.5 % (21.0-51.0); %Neutrophils 74.3 % (42.0-75.0); Hemoglobin 7.5 g/dL (14.0-18.0); Mean Corpuscular HGB CONC 33.7 g/dL (32.0-36.0); Mean Corpuscular Hemoglobin 31.6 pg (27.0-31.0); Mean Corpuscular Volume 93.6 fl (78.0-98.0); Platelet Count 426 10x3/uL (130-400); RBC Distribution Width 15.3 % (11.5-14.5); Red Blood Cell (RBC) Count 2.38 mill/uL (4.70-6.10); White Blood Cell (WBC) Count 14.5 10x3/uL (4.8-10.8)
[2022-04-11 07:12] LABS: Anion Gap 17 mmol/L (10-20); BUN (Urea Nitrogen) 62 mg/dL (8.4-25.7); Calc. Creatinine Clearance 8 mL/min (70-130); Calcium 8.7 mg/dL (7.8-10.44); Carbon Dioxide 23 mmol/L (23-31); Chloride 102 mmol/L (98-107); Estimated GFR 7; Glucose 89 mg/dL (83-110); Sodium 138 mmol/L (136-145)
[2022-04-11] MEDS: Pantoprazole 40 MG VIAL IVP SCH (08:08)
[2022-04-11] MEDS: Saccharomyces boulardii 250 MG CAP PO SCH (08:08)
[2022-04-11] MEDS: Aspirin 81 mg Enteric Coated Tablet PO SCH (08:08)
[2022-04-11] MEDS ORDERED: Heparin 10,000 UNITS/ 10 ML VIAL ONE (08:12)
[2022-04-11] MEDS: Sevelamer 2.4 GM PACKET PO SCH ×3 (08:23→16:38)
[2022-04-11] MEDS: cefTRIAXone\\ROCEPHIN 1 GM in Sodium Chloride 0.9% 100 ML IVPB SCH (18:04)
[2022-04-11] MEDS: Donepezil HCl 5 MG TAB PO SCH (21:16)
[2022-04-11] MEDS: Loperamide HCl 2 MG CAP PO PRN (21:16)
[2022-04-11] MEDS: Atorvastatin Calcium 40 MG TAB PO SCH (21:16)
[2022-04-11] MEDS: traMADol HCl 50 MG TAB PO PRN (21:18)
[2022-04-12] MEDS: Acetaminophen 325 MG TAB PO SCH ×4 (03:00→20:26)
[2022-04-12 06:57] LABS: #Eosinphils 0.2 thou/uL (0.0-0.7); #Lymphocytes 1.7 thou/uL (1.20-3.40); #Monocytes 1.2 thou/uL (0.11-0.59); #Neutrophils 8.8 thou/uL (1.40-6.50); %Basophils 0.2 % (0.0-1.0); %Eosinophils 1.9 % (0.0-10.0); %Lymphocytes 13.9 % (21.0-51.0); %Monocytes 10.3 % (0.0-10.0); %Neutrophils 73.6 % (42.0-75.0); Hemoglobin 7.8 g/dL (14.0-18.0); Mean Corpuscular HGB CONC 33.2 g/dL (32.0-36.0); Mean Corpuscular Hemoglobin 31.2 pg (27.0-31.0); Mean Corpuscular Volume 94.1 fl (78.0-98.0); Mean Platelet Volume 7.9 fL (7.4-10.4); Platelet Count 471 10x3/uL (130-400); RBC Distribution Width 15.2 % (11.5-14.5); Red Blood Cell (RBC) Count 2.51 mill/uL (4.70-6.10)
[2022-04-12 07:25] LABS: Anion Gap 18 mmol/L (10-20); BUN (Urea Nitrogen) 28 mg/dL (8.4-25.7); Calc. Creatinine Clearance 12 mL/min (70-130); Calcium 9.1 mg/dL (7.8-10.44); Carbon Dioxide 25 mmol/L (23-31); Chloride 101 mmol/L (98-107); Estimated GFR 12; Glucose 79 mg/dL (83-110); Potassium 4.4 mmol/L (3.5-5.1); Sodium 140 mmol/L (136-145)
[2022-04-12] MEDS ORDERED: Heparin 10,000 UNITS/ 10 ML VIAL ONE (08:40)
[2022-04-12] MEDS: Sevelamer 2.4 GM PACKET PO SCH ×3 (09:11→16:11)
[2022-04-12] MEDS: Aspirin 81 mg Enteric Coated Tablet PO SCH (09:12)
[2022-04-12] MEDS: Saccharomyces boulardii 250 MG CAP PO SCH (09:12)
[2022-04-12] MEDS: cefTRIAXone\\ROCEPHIN 1 GM in Sodium Chloride 0.9% 100 ML IVPB SCH (16:06)
[2022-04-12] MEDS: Atorvastatin Calcium 40 MG TAB PO SCH (20:26)
[2022-04-12] MEDS: Donepezil HCl 5 MG TAB PO SCH (20:26)
[2022-04-12] MEDS: traMADol HCl 50 MG TAB PO PRN (20:27)
[2022-04-12] MEDS ORDERED: Sterile Water 10 ML VIAL FS SCH (21:45)
[2022-04-12] MEDS ORDERED: Activase 2 MG VIAL CATH SCH (22:00)
[2022-04-13] MEDS: Acetaminophen 325 MG TAB PO SCH ×4 (03:00→21:00)
[2022-04-13 05:54] LABS: #Eosinphils 0.4 thou/uL (0.0-0.7); #Lymphocytes 1.7 thou/uL (1.20-3.40); #Monocytes 1.1 thou/uL (0.11-0.59); #Neutrophils 8.1 thou/uL (1.40-6.50); %Basophils 0.4 % (0.0-1.0); %Eosinophils 3.9 % (0.0-10.0); %Lymphocytes 14.7 % (21.0-51.0); %Monocytes 9.5 % (0.0-10.0); %Neutrophils 71.5 % (42.0-75.0); Hemoglobin 7.7 g/dL (14.0-18.0); Mean Corpuscular HGB CONC 32.2 g/dL (32.0-36.0); Mean Corpuscular Hemoglobin 30.5 pg (27.0-31.0); Mean Corpuscular Volume 94.7 fl (78.0-98.0); Mean Platelet Volume 7.8 fL (7.4-10.4); Platelet Count 446 10x3/uL (130-400); RBC Distribution Width 15.4 % (11.5-14.5); Red Blood Cell (RBC) Count 2.54 mill/uL (4.70-6.10); White Blood Cell (WBC) Count 11.4 10x3/uL (4.8-10.8)
[2022-04-13 06:12] LABS: Anion Gap 15 mmol/L (10-20); BUN (Urea Nitrogen) 38 mg/dL (8.4-25.7); Calc. Creatinine Clearance 9 mL/min (70-130); Calcium 8.5 mg/dL (7.8-10.44); Carbon Dioxide 27 mmol/L (23-31); Chloride 101 mmol/L (98-107); Estimated GFR 8; Glucose 98 mg/dL (83-110); Potassium 3.8 mmol/L (3.5-5.1); Sodium 139 mmol/L (136-145)
[2022-04-13] MEDS: Saccharomyces boulardii 250 MG CAP PO SCH (09:14)
[2022-04-13] MEDS: Aspirin 81 mg Enteric Coated Tablet PO SCH (09:14)
[2022-04-13] MEDS: Sevelamer 2.4 GM PACKET PO SCH ×3 (09:16→18:50)
[2022-04-13] MEDS ORDERED: Heparin 10,000 UNITS/ 10 ML VIAL ONE ×2 (11:51→18:00)
[2022-04-13] MEDS: cefTRIAXone\\ROCEPHIN 1 GM in Sodium Chloride 0.9% 100 ML IVPB SCH (15:19)
[2022-04-13] MEDS ORDERED: Activase 2 MG VIAL CATH SCH (19:45)
[2022-04-13] MEDS ORDERED: Sterile Water 10 ML VIAL IVP SCH (19:45)
[2022-04-13] MEDS: Donepezil HCl 5 MG TAB PO SCH (21:00)
[2022-04-13] MEDS: Atorvastatin Calcium 40 MG TAB PO SCH (21:02)
[2022-04-14] MEDS: Acetaminophen 325 MG TAB PO SCH ×4 (03:00→21:25)
[2022-04-14 07:05] LABS: #Eosinphils 0.4 thou/uL (0.0-0.7); #Lymphocytes 1.7 thou/uL (1.20-3.40); #Monocytes 1.2 thou/uL (0.11-0.59); #Neutrophils 8.8 thou/uL (1.40-6.50); %Basophils 0.3 % (0.0-1.0); %Eosinophils 3.3 % (0.0-10.0); %Lymphocytes 13.9 % (21.0-51.0); %Monocytes 9.8 % (0.0-10.0); %Neutrophils 72.6 % (42.0-75.0); Hemoglobin 7.7 g/dL (14.0-18.0); Mean Corpuscular HGB CONC 33.3 g/dL (32.0-36.0); Mean Corpuscular Hemoglobin 31.4 pg (27.0-31.0); Mean Corpuscular Volume 94.4 fl (78.0-98.0); Mean Platelet Volume 8.2 fL (7.4-10.4); Platelet Count 421 10x3/uL (130-400); RBC Distribution Width 15.1 % (11.5-14.5); Red Blood Cell (RBC) Count 2.45 mill/uL (4.70-6.10); White Blood Cell (WBC) Count 12.1 10x3/uL (4.8-10.8)
[2022-04-14 07:06] LABS: Anion Gap 16 mmol/L (10-20); BUN (Urea Nitrogen) 47 mg/dL (8.4-25.7); Calc. Creatinine Clearance 7 mL/min (70-130); Calcium 8.5 mg/dL (7.8-10.44); Carbon Dioxide 26 mmol/L (23-31); Chloride 102 mmol/L (98-107); Estimated GFR 7; Glucose 82 mg/dL (83-110); Potassium 3.8 mmol/L (3.5-5.1); Sodium 140 mmol/L (136-145)
[2022-04-14] MEDS: Sevelamer 2.4 GM PACKET PO SCH ×3 (09:32→18:57)
[2022-04-14] MEDS: Saccharomyces boulardii 250 MG CAP PO SCH (09:32)
[2022-04-14] MEDS: Aspirin 81 mg Enteric Coated Tablet PO SCH (09:32)
[2022-04-14] MEDS ORDERED: Heparin 10,000 UNITS/ 10 ML VIAL ONE ×2 (10:00→18:00)
[2022-04-14] MEDS: cefTRIAXone\\ROCEPHIN 1 GM in Sodium Chloride 0.9% 100 ML IVPB SCH (16:10)
[2022-04-14] MEDS: Atorvastatin Calcium 40 MG TAB PO SCH (21:25)
[2022-04-14] MEDS: Donepezil HCl 5 MG TAB PO SCH (21:25)
[2022-04-15] MEDS: Acetaminophen 325 MG TAB PO SCH ×4 (03:00→21:40)
[2022-04-15] MEDS: Sevelamer 2.4 GM PACKET PO SCH ×3 (08:25→19:31)
[2022-04-15] MEDS: Saccharomyces boulardii 250 MG CAP PO SCH (08:27)
[2022-04-15] MEDS: Aspirin 81 mg Enteric Coated Tablet PO SCH (08:27)
[2022-04-15 08:50] LABS: #Basophils 0.1 thou/uL (0.0-0.2); #Eosinphils 0.6 thou/uL (0.0-0.7); #Lymphocytes 1.8 thou/uL (1.20-3.40); #Monocytes 1.3 thou/uL (0.11-0.59); #Neutrophils 9.2 thou/uL (1.40-6.50); %Basophils 0.7 % (0.0-1.0); %Lymphocytes 13.7 % (21.0-51.0); %Monocytes 9.9 % (0.0-10.0); %Neutrophils 70.7 % (42.0-75.0); Mean Corpuscular HGB CONC 31.6 g/dL (32.0-36.0); Mean Corpuscular Hemoglobin 30.3 pg (27.0-31.0); Mean Corpuscular Volume 95.7 fl (78.0-98.0); Mean Platelet Volume 8.1 fL (7.4-10.4); Platelet Count 474 10x3/uL (130-400); RBC Distribution Width 14.9 % (11.5-14.5); Red Blood Cell (RBC) Count 2.64 mill/uL (4.70-6.10); White Blood Cell (WBC) Count 12.9 10x3/uL (4.8-10.8)
[2022-04-15 09:07] LABS: Anion Gap 16 mmol/L (10-20); BUN (Urea Nitrogen) 25 mg/dL (8.4-25.7); Calc. Creatinine Clearance 10 mL/min (70-130); Calcium 8.6 mg/dL (7.8-10.44); Carbon Dioxide 27 mmol/L (23-31); Chloride 99 mmol/L (98-107); Estimated GFR 10; Glucose 72 mg/dL (83-110); Potassium 3.8 mmol/L (3.5-5.1); Sodium 138 mmol/L (136-145)
[2022-04-15] MEDS ORDERED: Heparin 10,000 UNITS/ 10 ML VIAL ONE ×2 (11:55→17:00)
[2022-04-15] MEDS: cefTRIAXone\\ROCEPHIN 1 GM in Sodium Chloride 0.9% 100 ML IVPB SCH (15:51)
[2022-04-15] MEDS: Donepezil HCl 5 MG TAB PO SCH (21:40)
[2022-04-15] MEDS: Atorvastatin Calcium 40 MG TAB PO SCH (21:40)
[2022-04-16] MEDS: Acetaminophen 325 MG TAB PO SCH ×4 (03:00→23:21)
[2022-04-16 05:51] LABS: #Basophils 0.1 thou/uL (0.0-0.2); #Eosinphils 0.6 thou/uL (0.0-0.7); #Lymphocytes 1.9 thou/uL (1.20-3.40); #Monocytes 1.3 thou/uL (0.11-0.59); #Neutrophils 8.7 thou/uL (1.40-6.50); %Basophils 0.6 % (0.0-1.0); %Eosinophils 4.8 % (0.0-10.0); %Lymphocytes 14.9 % (21.0-51.0); %Monocytes 10.4 % (0.0-10.0); %Neutrophils 69.3 % (42.0-75.0); Hemoglobin 7.9 g/dL (14.0-18.0); Mean Corpuscular HGB CONC 32.2 g/dL (32.0-36.0); Mean Corpuscular Hemoglobin 30.5 pg (27.0-31.0); Mean Corpuscular Volume 94.8 fl (78.0-98.0); Mean Platelet Volume 7.7 fL (7.4-10.4); Platelet Count 441 10x3/uL (130-400); RBC Distribution Width 14.7 % (11.5-14.5); Red Blood Cell (RBC) Count 2.59 mill/uL (4.70-6.10); White Blood Cell (WBC) Count 12.6 10x3/uL (4.8-10.8)
[2022-04-16 06:10] LABS: Anion Gap 14 mmol/L (10-20); BUN (Urea Nitrogen) 33 mg/dL (8.4-25.7); Calc. Creatinine Clearance 9 mL/min (70-130); Calcium 8.8 mg/dL (7.8-10.44); Carbon Dioxide 28 mmol/L (23-31); Chloride 100 mmol/L (98-107); Estimated GFR 8; Glucose 98 mg/dL (83-110); Potassium 3.4 mmol/L (3.5-5.1); Sodium 139 mmol/L (136-145)
[2022-04-16] MEDS: Sevelamer 2.4 GM PACKET PO SCH ×3 (08:27→19:07)
[2022-04-16] MEDS: Aspirin 81 mg Enteric Coated Tablet PO SCH (08:28)
[2022-04-16] MEDS: Saccharomyces boulardii 250 MG CAP PO SCH (08:28)
[2022-04-16] MEDS ORDERED: Heparin 10,000 UNITS/ 10 ML VIAL ONE (10:08)
[2022-04-16 12:23] VITALS: BMI 23.0
[2022-04-16] MEDS: cefTRIAXone\\ROCEPHIN 1 GM in Sodium Chloride 0.9% 100 ML IVPB SCH (16:23)
[2022-04-16] MEDS: Atorvastatin Calcium 40 MG TAB PO SCH (23:21)
[2022-04-16] MEDS: Donepezil HCl 5 MG TAB PO SCH (23:25)
[2022-04-16] MEDS: Loperamide HCl 2 MG CAP PO PRN (23:25)
[2022-04-17] MEDS: Acetaminophen 325 MG TAB PO SCH ×3 (05:11→14:41)
[2022-04-17] MEDS: Saccharomyces boulardii 250 MG CAP PO SCH (09:53)
[2022-04-17] MEDS: Aspirin 81 mg Enteric Coated Tablet PO SCH (09:53)
[2022-04-17] MEDS: Sevelamer 2.4 GM PACKET PO SCH ×3 (13:00→19:18)
[2022-04-17] MEDS: cefTRIAXone\\ROCEPHIN 1 GM in Sodium Chloride 0.9% 100 ML IVPB SCH (14:44)
[2022-04-17] MEDS: EPOETIN ALFA-EPBX (ESRD) 10,000 UNIT/ML VIAL SC SCH (14:44)
[2022-04-17 17:54] VITALS: BP 153/73; TEMP 98.1
== END 2022-04-17 18:20 | disposition home health service (06) | DRG 853 ==
LOC: ERS 10:37 → 2NO 11:52 → ERHOLD 13:11 → 2NO 03-26 11:56 → CCU 03-28 12:50 → SURG B 03-30 11:56
PROVIDERS: ADMIT Family Medicine; ATTEND Family Medicine
PROC: 3E03329 Introduction of Other Anti-infective into Peripheral Vein, Percutaneous Approach (ICD-10-PCS; principal; 2022-03-25)
PROC: 5A1D70Z Performance of Urinary Filtration, Intermittent, Less than 6 Hours Per Day (ICD-10-PCS; 2022-03-25)
PROC: 0FT44ZZ Resection of Gallbladder, Percutaneous Endoscopic Approach (ICD-10-PCS; 2022-03-28)
PROC: 6A550Z2 Pheresis of Platelets, Single (ICD-10-PCS; 2022-03-28)
PROC: 30233N1 Transfusion of Nonautologous Red Blood Cells into Peripheral Vein, Percutaneous Approach (ICD-10-PCS; 2022-03-28)
PROC: 06HY33Z Insertion of Infusion Device into Lower Vein, Percutaneous Approach (ICD-10-PCS; 2022-03-28)
PROC: 3E1M39Z Irrigation of Peritoneal Cavity using Dialysate, Percutaneous Approach (ICD-10-PCS; 2022-04-03)
PROC: 3E03317 Introduction of Other Thrombolytic into Peripheral Vein, Percutaneous Approach (ICD-10-PCS; 2022-04-04)
PROC: 0FC04ZZ Extirpation of Matter from Liver, Percutaneous Endoscopic Approach (ICD-10-PCS; 2022-04-08)
PROC: 0WWG43Z Revision of Infusion Device in Peritoneal Cavity, Percutaneous Endoscopic Approach (ICD-10-PCS; 2022-04-08)
PROC: 0JH60XZ Insertion of Tunneled Vascular Access Device into Chest Subcutaneous Tissue and Fascia, Open Approach (ICD-10-PCS; 2022-04-08)
PROC: 02HV33Z Insertion of Infusion Device into Superior Vena Cava, Percutaneous Approach (ICD-10-PCS; 2022-04-08)
PROC: B5181ZA Fluoroscopy of Superior Vena Cava using Low Osmolar Contrast, Guidance (ICD-10-PCS; 2022-04-08)
PROC: 02HV33Z Insertion of Infusion Device into Superior Vena Cava, Percutaneous Approach (ICD-10-PCS; 2022-04-08)
PROC: B548ZZA Ultrasonography of Superior Vena Cava, Guidance (ICD-10-PCS; 2022-04-08)
DX: A41.51 Sepsis due to Escherichia coli [E. coli] (principal); Z66 Do not resuscitate; Z20.822 Contact with and (suspected) exposure to COVID-19; G93.41 Metabolic encephalopathy; N18.6 End stage renal disease; K65.2 Spontaneous bacterial peritonitis; T85.611A Breakdown (mechanical) of intraperitoneal dialysis catheter, initial encounter; K80.12 Calculus of gallbladder with acute and chronic cholecystitis without obstruction; D62 Acute posthemorrhagic anemia; A40.8 Other streptococcal sepsis; T80.89XA Other complications following infusion, transfusion and therapeutic injection, initial encounter; Y84.8 Other medical procedures as the cause of abnormal reaction of the patient, or of later complication, without mention of misadventure at the time of the procedure; E87.5 Hyperkalemia; D63.1 Anemia in chronic kidney disease; G30.9 Alzheimer's disease, unspecified; E78.5 Hyperlipidemia, unspecified; E86.9 Volume depletion, unspecified; E83.39 Other disorders of phosphorus metabolism; F02.B0 Dementia in other diseases classified elsewhere, moderate, without behavioral disturbance, psychotic disturbance, mood disturbance, and anxiety; K21.9 Gastro-esophageal reflux disease without esophagitis; K82.A1 Gangrene of gallbladder in cholecystitis; R88.0 Cloudy (hemodialysis) (peritoneal) dialysis effluent; R19.7 Diarrhea, unspecified; Z99.2 Dependence on renal dialysis; Z88.8 Allergy status to other drugs, medicaments and biological substances; Z79.899 Other long term (current) drug therapy; Z79.82 Long term (current) use of aspirin; Z79.51 Long term (current) use of inhaled steroids; Z95.828 Presence of other vascular implants and grafts
CPT/HCPCS: 36415; 36430; 36901; 51701; 71045; 74176; 74177; 76705; 80048; 80053; 80076; 81003; 81015; 82140; 82533; 82553; 83605; 83735; 84100; 84484; 85025; 85060; 85610; 85730; 86140; 86850; 86900; 86901; 87040; 87070; 87077; 87186; 87205; 87324; 87449; 87505; 87811; 88304; 89051; 90935; 90945; 93005; 93010; 94760; C1751; C1752; C1889; C9113; G0257; J0696; J1100; J1642; J1644; J1650; J1815; J2001; J2272; J2370; J2405; J2543; J2704; J2997; J3010; J3490; P9016; P9035; P9045; P9047; Q5105; Q9963; Q9967; S0028; S0179; U0003; U0005